=== PATIENT | male | born 1965 | race Caucasian/White ===

== ENCOUNTER 2017-02-03 11:55 | Day surgery (SDC) | payer OTHER ==
[~2017-02-03] VITALS: Ht 188 cm; Wt 123.0 kg
[~2017-02-03 11:55] MED LIST: PRED20TA PO
--- NOTE | 2017-02-03 12:45 | DIAGNOSTIC IMAGING REPORT ---
CHEST PREADMISSION(PA/LAT) CLINICAL HISTORY: for surgery today COMPARISON STUDY: No previous studies for comparison. FINDINGS: The bones soft tissues and hemidiaphragms are normal. The cardiomediastinal silhouette is normal. The lungs are clear. The pulmonary vasculature is normal. IMPRESSION: Negative chest. The above report was generated using voice recognition software. It may contain grammatical, syntax or spelling errors. Electronically signed by: Homero Villalba M.D. 02/03/2017 12:44 PM Dictated Date/Time: 02/03/2017 12:43 PM
[2017-02-03 12:56] VITALS: BP 140/68; PULSE 68; TEMP 36.9; O2SAT 98; Ht 188 cm; Wt 123.0 kg
[2017-02-03] MEDS ORDERED: ESCI1TAB6 PO (12:56)
[2017-02-03] MEDS ORDERED: ASPI81TA28 PO (12:56)
[2017-02-03] MEDS ORDERED: CEFAZOLIN 2000MG IV PUSH 10 ML IV SCH (13:00)
[2017-02-03 13:09] LABS: BASO % 0.1 %; BASO ABS # 0.01 K/uL (0-0.2); EOS % 1.6 %; HEMATOCRIT 42.9 % (42-52); IG% 0.1 %; LYMPH % 20.3 %; LYMPH ABS # 1.78 K/uL (1.2-3.4); MEAN CELL VOLUME 83.8 fL (80-100); MEAN CORPUSCULAR HEMOGLOBIN 28.3 pg (25-34); MEAN PLATELET VOLUME 10.9 fL (7.4-10.4); MONO % 5.9 %; PLATELET COUNT 269 K/uL (130-400); RED BLOOD COUNT 5.12 M/uL (4.7-6.1); WHITE BLOOD COUNT 8.76 K/uL (4.8-10.8)
[2017-02-03 13:29] LABS: BUN/CREATININE RATIO 10.5 (10-20); CALCIUM 8.7 mg/dl (8.5-10.1); COMPLETE YES; CREATININE 0.94 mg/dl (0.60-1.40); MEAN CORPUSCULAR HGB CONC 33.8 g/dl (32-36); POTASSIUM 3.5 mmol/L (3.5-5.1)
[2017-02-03] MEDS ORDERED: OXYC-106 PO ×2 (13:29→16:43)
[2017-02-03] MEDS ORDERED: CEFAZOLIN SOD 2000MG/10 ML IV PUSH IV ONE (13:36)
[2017-02-03] MEDS ORDERED: BUPIVACAINE 0.5 % 5 MG/1 ML MPF 30ML VIAL ONE (15:11)
[2017-02-03] MEDS ORDERED: MIDAZOLAM HCL 1 MG/ML 2ML VIAL ONE (15:19)
[2017-02-03] MEDS ORDERED: FENTANYL CITRATE INJ 50 MCG/1 ML 2 ML VIAL ONE ×3 (15:19→16:08)
--- NOTE | 2017-02-03 15:22 | History & Physical Bridge Note ---
H&P Re-Evaluation Bridge Note: I have examined the patient, reviewed the History & Physical and in the interval since the performance of the History & Physical I have noted the following changes of clinical significance: No changes noted R radical inguinal orchiectomy for suspected testicular cancer.
[2017-02-03] MEDS ORDERED: DEXAMETHASONE SOD INJ 4 MG/ML VIAL ONE (15:40)
[2017-02-03] MEDS ORDERED: ONDANSETRON INJ 2 MG/ML 2 ML VIAL ONE (15:40)
[2017-02-03] MEDS ORDERED: PROPOFOL IV EMULSION 10 MG/ML 20 ML VIAL IV ONE (15:40)
[2017-02-03] MEDS ORDERED: LIDOCAINE HCL 2% 2 ML VIAL (20MG/ML) ONE (15:40)
[2017-02-03] MEDS ORDERED: ETOMIDATE 2 MG/ML 20 ML VIAL IV ONE (16:08)
[2017-02-03] MEDS ORDERED: ONDANSETRON INJ 2 MG/ML 2 ML VIAL IV PRN (16:15)
[2017-02-03] MEDS ORDERED: HYDROmorphone INJ 1 MG/ML SYR IV PRN (16:15)
[2017-02-03] MEDS ORDERED: EpHEDrine SULFATE INJ 50 MG/ML AMP IV PRN (16:15)
[2017-02-03] MEDS ORDERED: PROMETHAZINE HCL INJ 12.5 MG in SODIUM CHLORIDE 0.9% 50ML 50 ML IV PRN (16:15)
[2017-02-03] MEDS ORDERED: ATROPINE SULFATE 0.1 MG/ML 5ML SYR IV PRN (16:15)
--- NOTE | 2017-02-03 16:42 | Discharge Instructions ---
Discharge Instructions Date of Service Feb 03, 2017. Admission Reason for Admission: Scrotal Mass Discharge Discharge Diagnosis / Problem: testicular mass Discharge Goals Goal(s): Decrease discomfort, Improve function, Increase independence, Improve disease control, Prevent Disease Progression Activity Recommendations Activity Limitations: per Instructions/Follow-up section Lifting Limitations: no more than 25 pounds (for the next 4 weeks) Exercise/Sports Limitations: gradually increase as tolerated May Resume Sexual Activity: when tolerated Shower/Bathe: tomorrow Driving or Machine Use: resume 1 day after discharge (as long as you are off of pain medications and feel you can control your vehicle) . Instructions / Follow-Up Instructions / Follow-Up Dr. Angelo Villagomez's office will arrange for a follow up appointment if they haven't done so already. Discharge Diet Recommended Diet: Regular Diet Procedures Procedures Performed: Right Inguinal Radical Orchiectomy Pending Studies Studies pending at discharge: no Medical Emergencies . Who to Call and When: Medical Emergencies: If at any time you feel your situation is an emergency, please call 911 immediately. . Non-Emergent Contact Non-Emergency issues call your: Urologist Call Non-Emergent contact if: you have a fever, temperature is above 101.5, your pain is not controlled, your pain is worsening . . "Provider Documentation" section prepared by Tato Montes. . VTE Core Measure Inpt VTE Proph given/why not?: Treatment not indicated (1 recent prescription ( appropriate))
[2017-02-03] MEDS ORDERED: SODIUM CHLORIDE 0.9% 1000ML 1,000 ML IV SCH (16:43)
[2017-02-03] MEDS ORDERED: OXYCODONE/ACETAMINOPHEN 5-325 TAB PO PRN ×2 (16:45)
[2017-02-03] MEDS: FENTANYL CITRATE INJ 50 MCG/1 ML 2 ML VIAL IV PRN ×4 (16:52→17:08)
--- NOTE | 2017-02-03 17:03 | [facility] Operative Report ---
Operative Report Operative Date Feb 03, 2017. Pre-Operative Diagnosis Right testicular mass - suspected testicular cancer Post-Operative Diagnosis same as pre-operative Procedure(s) Performed Radical Right Inguinal Orchiectomy Surgeon Dr. Naseem Villagomez Estimated Blood Loss 10ml Findings Large, hypervascular testicular mass with significant inflammatory response of the gubernaculum and tunical vaginalis Specimens Fresh Specimen A: Right testicle Drains none Anesthesia Gen; local Complication(s) None Disposition Recovery Room / PACU Indications Testicular mass - questionable hx of trauma, but grossly elevated tumor markers Description of Procedure Yared Omalley was identified in the preoperative holding area, appropriate informed consent reviewed and completed and the patient was transported to the operating suite. On arrival he received appropriate preoperative antibiotics in the form of Ancef. Adequate general anesthesia was achieved and the patient was placed in supine position with the bed slightly flexed. He was sterilely prepped and draped in standard fashion with inclusion of the scrotum in the field. Of note, the patient has a history of right inguinal herniorrhaphy and recent history with questionable trauma to the right testis. He was noted to have significant right testicular swelling and in the midst of his evaluation was determined to have grossly elevated testicular cancer tumor markers, prompting the decision to treat this as a testicular cancer and proceed with radical inguinal orchiectomy. I utilized his prior right inguinal incision and opened it for its full length with a scalpel. I carried my dissection through Mk's fascia until I encountered the external oblique fascia. Several blue Prolene stitches were visible at this level, these were cut sharply and the external oblique fascia opened exposing the canal. I inspected for the nerve, however this was not readily visible. There was some scarring around the cord, although not excessive. There was no evidence of recurrent hernia. I was able to successfully dissect circumferentially around the cord at this level. I then split the cremasteric musculature to expose the underlying true cord structures. I again dissected circumferentially around the structures before elevating them out of the incision and utilizing a Julieta drain as a tourniquet placed at the most proximal extent of the cord. I then carefully dissected distally around the perimeter of the cord until I was able to access the upper aspect of the scrotum. With gentle traction on the cord as well as pressure placed on the testis through the scrotal wall, I was able to deliver the testis through our incision. Upon delivery, it was a very readily apparent that there was a significant inflammatory response around the testis itself. Rather than a small, thin gubernaculum there was a significant adhesive and desmoplastic reaction around the testis bonding the scrotal wall to the testis. I was able to carefully tease the scrotal wall off the testis without violating the dermal layers. I meticulously obtained hemostasis from the inner aspect of the scrotal wall before placing a sponge within the scrotal compartment as I turned my attention towards completion of the orchiectomy. Just proximal to my previously placed tourniquet, I was able to divide the cord into 3 distinct packets. 1 packet containing the vas deferens, second packet of the vasculature in the third the remaining structures. After clamping the cord at this level, I transected the cord distal to my clamps and removed the testis and passed it off the table. Of note, this was a very vascular appearing testis with numerous vessels seen coursing underneath the tunica albuginea and other aspects of the specimen. Each of the cord packets was ligated utilizing a 0 silk tie followed by suture ligation utilizing a 2-0 silk suture. The silk sutures were left approximately 1-1/2 inches in length. I then push the cord remnant retrograde through the internal inguinal ring. Of note, secondary to his prior herniorrhaphy, there was a small finger width defect at the internal ring surrounded by his previously placed mesh. Utilizing a 2-0 Prolene suture, I placed a [id number] stitch across this and closed the internal ring with extreme care to avoid entrapment of any internal structures. I then removed the sponge previously placed into the scrotum and inspected for hemostasis which was excellent. There was no active bleeding within the canal either. I irrigated the canal with sterile water, before reapproximating the external oblique fascia with a 2-0 Prolene suture. The wound was infiltrated with half percent Marcaine placed under the fascia as well as in the skin. A 0 Vicryl was used to reapproximate Mk's fascia before closing the skin with 4-0 Monocryl subcuticular stitch. Dermabond was placed over the wound, and the patient was subsequently extubated and taken to the PACU in stable condition. I attest to the content of the Intraoperative Record and any orders documented therein. Any exceptions are noted below.
[2017-02-03 17:30] VITALS: BP 136/72; PULSE 67; TEMP 36.8; O2SAT 98
--- NOTE | 2017-02-03 17:49 | Anesthesiology Progress Note ---
Anesthesia Post Op Note Date & Time Feb 03, 2017 at 17:48 Vital Signs Pain Intensity: 4 Vital Signs Past 12 Hours Date Time Temp Pulse Resp B/P (MAP) Pulse Ox O2 Delivery O2 Flow Rate FiO2 02/03/17 17:20 67 16 121/78 97 Room Air 02/03/17 17:10 70 18 140/81 98 Room Air 02/03/17 17:00 69 16 147/90 100 Oxymask 10 02/03/17 16:50 67 20 149/87 100 Oxymask 10 02/03/17 16:44 37.1 65 18 121/77 99 Oxymask 10 02/03/17 12:56 36.9 68 18 140/68 (92) 98 Room Air Notes Mental Status: alert / awake / arousable, participated in evaluation Pt Amnestic to Procedure: Yes Nausea / Vomiting: adequately controlled Pain: adequately controlled Airway Patency, RR, SpO2: stable & adequate BP & HR: stable & adequate Hydration State: stable & adequate Anesthetic Complications: no major complications apparent
[2017-02-03 18:00] VITALS: BP 125/69; PULSE 72; TEMP 36.8; O2SAT 97
[2017-02-03 18:30] VITALS: BP 116/86; PULSE 72; TEMP 36.8; O2SAT 97
[2017-03-10] MEDS ORDERED: NAPR1TAB9 PO (11:32)
[2017-03-11] MEDS ORDERED: HYDR-5688 PO (10:29)
== END 2017-02-03 19:40 | disposition home or self-care (01) ==
LOC: C.ACU 11:55
PROVIDERS: ATTEND Urology
DX: C62.91 Malignant neoplasm of right testis, unspecified whether descended or undescended (principal)

== ENCOUNTER → 2017-02-13 | Outpatient (CLI) | payer OTHER ==
[~2017-02-13] MED LIST changes: +ASPI81TA28 PO; +ESCI1TAB6 PO; +OPTIRAY 320 IV PRN; +OXYC-106 PO; -PRED20TA PO
--- NOTE | 2017-02-13 12:17 | DIAGNOSTIC IMAGING REPORT ---
ABD/PELVIS IV CONTRAST ONLY CLINICAL HISTORY: 51 years-old Male presenting with testicular cancer. TECHNIQUE: Multidetector CT of the abdomen and pelvis was performed after the administration of intravenous contrast. IV contrast: 120 mL of Optiray 320. A dose lowering technique was used consistent with the principles of ALARA (as low as reasonably achievable). COMPARISON: None. CT DOSE (mGy.cm): The estimated cumulative dose is 1273.18 mGy.cm. FINDINGS: Legal Advisor topogram: Unremarkable. Lung bases: Lung bases clear. Normal heart size. No pericardial or pleural effusion. Liver: Normal morphology. No liver lesion. Patent hepatic vasculature. Biliary: No intrahepatic or extrahepatic biliary ductal dilatation. Gallbladder surgically absent. Pancreas: Mild parenchymal atrophy. Spleen: Normal. Adrenal glands: Normal. Kidneys and ureters: 3 mm nonobstructing left renal calculus at the lower pole. No hydronephrosis. Punctate and subcentimeter hypodensities in the kidneys, too small to characterize but likely cysts. Ureters normal bilaterally. Bladder: Mild circumferential bladder wall thickening. Pelvic organs: Prostate and seminal vesicles normal. Bowel: Normal appendix. No bowel obstruction. Small hiatal hernia. Peritoneal cavity: No free fluid or intraperitoneal gas. Lymph nodes: Pathologically enlarged lymph node in the aortocaval region measuring 25 x 22 mm (series 6 image 251). Additional borderline enlarged lymph node in the posterior mediastinum adjacent to the gastroesophageal junction measuring 8 mm in the short axis (series 6 image 78). Vasculature: Atherosclerosis of the normal caliber abdominal aorta. IVC patent. Abdominal wall: Postsurgical and/or posttreatment changes of the right scrotum. Fluid suggested in the right inguinal canal. Overlying subcutaneous fat infiltration and skin thickening noted. Musculoskeletal: Multiple sclerotic foci in the pelvis are most characteristic of bone islands. No destructive osseous lesion. Hemangioma noted in the T10 vertebral body. IMPRESSION: 1. Retroperitoneal lymphadenopathy consistent with metastatic disease. Suspicious though borderline enlarged lymph node in the posterior mediastinum adjacent to the GE junction, also concerning for potential site of disease. 2. Postsurgical and/or posttreatment changes of the right scrotum and overlying abdominal wall. Correlate clinically to exclude cellulitis. 3. Circumferential bladder wall thickening. Differential considerations include radiation cystitis, infectious cystitis, and chronic bladder outlet obstruction. 4. Nonobstructing left renal calculus. Electronically signed by: Darron Martinez M.D. 02/13/2017 12:16 PM Dictated Date/Time: 02/13/2017 12:04 PM
--- NOTE | 2017-02-13 12:20 | DIAGNOSTIC IMAGING REPORT ---
(CHEST) THORAX WITH CT DOSE: HISTORY: Testicular carcinoma C62.90 [id number] 02/04/17 - 08/03/17CTS7 TECHNIQUE: Multiaxial CT images of the chest were performed following the intravenous administration of contrast. A dose lowering technique was utilized adhering to the principles of ALARA. COMPARISON: None. FINDINGS: Lungs are considered clear. Single micronodule right middle lobe transaxial image 26 measuring 3 mm. 2 mm left mid lung nodule. No additional significant nodularity. No focal infiltrative change. Hilar and mediastinal regions show no significant adenopathy. No lytic or blastic process of the osseous structures. IMPRESSION: 1. Small micronodules of the right as well as left chest measuring 3 and 2 mm respectively. 2. Study is otherwise normal. 3. Follow-up per Fleischner criteria of these low suspicion nodules. Please refer to below summary of Fleischner criteria recommendations for follow-up of incidental CT nodules (Maxwell Campos, Guidelines for management of small pulmonary nodules detected on CT scans: A statement from the Fleischner Society, Radiology 237: [phone].) SOLID NODULES Solitary nodule size: <6 mm * low risk patients: no follow-up needed * high risk patients: optional CT at 12 months Solitary nodule size: 6-8 mm * low risk patients: follow-up at 6-12 months, then consider further follow-up at 18-24 months * high risk patients: initial follow-up CT at 6-12 months and then at 18-24 months if no change Solitary nodule size: >8 mm * either low or high risk patients - consider follow-up CT at 3 months, and/or CT-PET, and/or biopsy Multiple nodules size: <6 mm * low risk patients: no routine follow-up * high risk patients: optional CT at 12 months Multiple nodules size: 6-8 mm * low risk patients: follow-up at 3-6 months, then consider further follow-up at 18-24 months * high risk patients: follow-up at 3-6 months, then at 18-24 months if no change Multiple nodules size: >8 mm * low risk patients: follow-up at 3-6 months, then consider further follow-up at 18-24 months * high risk patients: follow-up at 3-6 months, then at 18-24 months if no change Note: newly detected indeterminate nodule in persons 35 years of age or older. * low risk patients: minimal or absent history of smoking and/or other known risk factors * high risk patients: history of smoking or of other known risk factors (e.g. first degree relative with lung cancer, or exposure to asbestos, radon, uranium) * if a nodule up to 8 mm is partly solid or is ground glass further follow-up is required after 24 months to exclude possible slow growing adenocarcinoma (RL) SUBSOLID NODULES Solitary pure ground-glass nodule * nodule size <6 mm - no CT follow-up required * nodule size >=6 mm - follow-up CT at 6-12 months, then every 2 years until 5 years Solitary part-solid nodule * nodule size <6 mm - no CT follow-up required * nodule size >=6 mm - follow-up CT at 3-6 months. If unchanged, and solid component remains <6 mm, then annual follow-up for 5 years Multiple subsolid nodules * nodule size <6 mm - follow-up CT at 3-6 months, consider further follow-up at 2 and 4 years if stable * nodule size >=6 mm - follow-up CT at 3-6 months, subsequent management based on the most suspicious nodule(s) The above report was generated using voice recognition software. It may contain grammatical, syntax or spelling errors. Electronically signed by: Homero Villalba M.D. 02/13/2017 12:19 PM Dictated Date/Time: 02/13/2017 12:15 PM
[2017-02-16 10:19] LABS: AFP TUMOR MARKER SERUM 2027.1 NG/ML (<6.1)
== END | disposition home or self-care (01) ==
LOC: C.CTS 11:01
PROVIDERS: ATTEND Urology
DX: C62.90 Malignant neoplasm of unspecified testis, unspecified whether descended or undescended (principal)

== ENCOUNTER → 2017-03-09 | Outpatient (CLI) | payer OTHER ==
[~2017-03-09] MED LIST changes: +HYDR-5688 PO; +NAPR1TAB9 PO; -OPTIRAY 320 IV PRN
--- NOTE | 2017-03-10 11:31 | PULMONARY FUNCTION TEST ---
CLINICAL DATA: A 51-year-old male, height 72 inches and a weight of [address] Weber for pulmonary evaluation prior to initiating chemotherapy for testicular cancer. Spirometry pre- and post-bronchodilator, lung volumes, and DLCO were performed. FINDINGS: Pre-bronchodilator spirometry demonstrates mild obstructive airways disease. FVC is 77% of predicted. FEV1 was 73% of predicted. [id number] was 60% of predicted. There was improvement after inhaled bronchodilator. FVC improved 8% to 83% of predicted. FEV1 improved 11% to 81% of predicted. [id number] improved 25% to 75% of predicted. Lung volumes showed a normal residual volume. Expiratory reserve volume was reduced secondary to obesity. DLCO was normal at 82%. IMPRESSION: Mild obstructive airways disease with improvement after inhaled bronchodilator. Reduction in expiratory reserve volume due to obesity. Normal DLCO. MTDD
== END | disposition home or self-care (01) ==
LOC: C.RC 11:39
PROVIDERS: ATTEND Internal Medicine Hematology & Oncology
DX: C62.11 Malignant neoplasm of descended right testis (principal)

== ENCOUNTER → 2017-03-11 | Day surgery (SDC) | payer OTHER ==
[~2017-03-11] VITALS: Ht 188 cm; Wt 105.9 kg
[~2017-03-11] MED LIST changes: +CEFAZOLIN 2000MG IV PUSH 10 ML IV SCH; +CEFAZOLIN SOD 1 GM VIAL ONE; +DEXAMETHASONE SOD INJ 4 MG/ML VIAL ONE; +FENTANYL CITRATE INJ 50 MCG/1 ML 2 ML VIAL ONE; +HEPARIN SOD (PORCINE) 1000 UNIT/ML 10 ML VIAL ONE; +HYDROCODONE/ACETAMOPHEN 5/325MG TAB PO PRN; +LACTATED RINGER'S 1000ML 1,000 ML IV SCH; +LIDOCAINE HCL 1% 20 ML VIAL ONE; +LIDOCAINE HCL 2% 2 ML VIAL (20MG/ML) ONE; +MIDAZOLAM HCL 1 MG/ML 2ML VIAL ONE; +MoRPHine SULFATE 2 MG/ML CARP IV PRN; +ONDANSETRON INJ 2 MG/ML 2 ML VIAL IV PRN; +ONDANSETRON INJ 2 MG/ML 2 ML VIAL ONE; -OXYC-106 PO; +PROPOFOL IV EMULSION 10 MG/ML 20 ML VIAL IV ONE; +THROMBIN FOR SOLN 20000 UNIT KIT ONE
[2017-03-11 09:10] VITALS: BP 141/78; PULSE 65; TEMP 36.8; O2SAT 98; Ht 188 cm; Wt 105.9 kg
[2017-03-11 09:22] LABS: HEMATOCRIT 44.9 % (42-52); MEAN CELL VOLUME 83.6 fL (80-100); MEAN CORPUSCULAR HEMOGLOBIN 27.2 pg (25-34); PLATELET COUNT 209 K/uL (130-400); RED BLOOD COUNT 5.37 M/uL (4.7-6.1); WHITE BLOOD COUNT 7.83 K/uL (4.8-10.8)
[2017-03-11 09:25] LABS: MEAN CORPUSCULAR HGB CONC 32.5 g/dl (32-36)
--- NOTE | 2017-03-11 10:28 | Discharge Instructions ---
Discharge Instructions Date of Service Mar 11, 2017. Visit Reason for Visit: Testicular Cancer Discharge Discharge Diagnosis / Problem: A-port placement Discharge Goals Goal(s): Therapeutic intervention Activity Recommendations Activity Limitations: as noted below Shower/Bathe: keep incision dry (for 2 days) Driving or Machine Use: resume 3 days after discharge Anesthesia . Post Anesthesia Instructions: If you have had General Anesthesia or IV Sedation: * Do not drive today. * Resume driving when surgeon permits. * Do not make important decisions or sign legal documents today. * Call surgeon for: 1. Temperature elevations greater than 101 degrees F. 2. Uncontrollable pain. 3. Excessive bleeding. 4. Persistent nausea and vomiting. 5. Medication intolerance (nausea, vomiting or rash). * For nausea and vomiting use only clear liquids such as: tea, soda, bouillon until nausea subsides, then gradually increase diet as tolerated. * If you have any concerns or questions, call your surgeon's office. If physician is unavailable and it is an emergency, call 911 or go to the nearest emergency room. . Instructions / Follow-Up Instructions / Follow-Up Dr. Jones's office in 2 weeks for suture removal, call [phone] to schedule OK for port to be used Diet Recommendations Recommended Home Diet: no limitations Pending Studies Studies pending at discharge: no Medical Emergencies . Who to Call and When: Medical Emergencies: If at any time you feel your situation is an emergency, please call 911 immediately. . Non-Emergent Contact Non-Emergency issues call your: Surgeon Call Non-Emergent contact if: you have a fever, temperature is above 101.5, your pain is not controlled, wound has increased redness, you have any medication questions . . "Provider Documentation" section prepared by Gerardo Cuevas. .
--- NOTE | 2017-03-11 10:31 | History & Physical Bridge Note ---
H&P Re-Evaluation Bridge Note: I have examined the patient, reviewed the History & Physical and in the interval since the performance of the History & Physical I have noted the following changes of clinical significance: No changes noted
--- NOTE | 2017-03-11 12:45 | [facility] Operative Report ---
Operative Report Operative Date Mar 11, 2017. Pre-Operative Diagnosis poor venous access; testicular cancer Post-Operative Diagnosis poor venous access; testicular cancer Procedure(s) Performed Insertion of A-Port into left cephalic vein Surgeon Dr. Matthias Jones Chips Screen Tender Surgeon(s) none Estimated Blood Loss 5mL Findings placed via Lt cephalic vein Specimens none per surgeon Anesthesia local/ sedation Complication(s) None Disposition Recovery Room / PACU I attest to the content of the Intraoperative Record and any orders documented therein. Any exceptions are noted below.
--- NOTE | 2017-03-11 13:07 | DIAGNOSTIC IMAGING REPORT ---
CHEST ONE VIEW PORTABLE CLINICAL HISTORY: port placement COMPARISON STUDY: Chest CT February 13, 2017. FINDINGS: There has been interval placement of a left subclavian [id number]. Catheter tip projects over the cavoatrial junction. There is no pneumothorax. No consolidation is present. Pulmonary vascularity is normal. Cardiomediastinal silhouette is normal. IMPRESSION: No pneumothorax following placement of a left subclavian [id number]. Electronically signed by: Ortiz Barnes M.D. 03/11/2017 1:06 PM Dictated Date/Time: 03/11/2017 1:03 PM
--- NOTE | 2017-03-11 13:27 | OPERATIVE REPORT ---
DATE OF OPERATION: 03/11/2017 NAME OF OPERATION: Access port placement. PREOPERATIVE DIAGNOSIS: Testicular cancer. POSTOPERATIVE DIAGNOSIS: Same. STAFF SURGEON: Dr. Jones. ANESTHESIA: 1% plain lidocaine. PROCEDURE: The patient was brought in the operating room and placed on the operating table in supine position. His chest was prepped and draped in usual fashion. Skin and subcutaneous tissues over the left deltopectoral groove were anesthetized. Incision made carrying dissection down identifying the cephalic vein which was deep. It was ligated distally using 2-0 silk suture and then opened. A catheter passed into the superior vena cava under fluoroscopy, secured in place using a 2-0 silk. The catheter was aspirated and flushed with heparinized solution. A pocket was fashioned in the chest wall. The port attached to the catheter, placed into the pocket and secured to the chest wall using 3-0 Prolene suture. The port was then aspirated and flushed with heparinized solution. The site was irrigated with antibiotic solution. Subcutaneous tissues were reapproximated using 2-0 chromic catgut suture then the skin reapproximated using 4-0 nylon suture. I attest to the content of the Intraoperative Record and any orders documented therein. Any exception s are noted below.
[2017-03-11 13:45] VITALS: BP 118/70; PULSE 62; TEMP 36.4; O2SAT 96
--- NOTE | 2017-03-11 13:46 | Anesthesiology Progress Note ---
Anesthesia Post Op Note Date & Time Mar 11, 2017 at 13:45 Vital Signs Pain Intensity: 0 Vital Signs Past 12 Hours Date Time Temp Pulse Resp B/P (MAP) Pulse Ox O2 Delivery O2 Flow Rate FiO2 03/11/17 13:40 62 14 124/72 96 Room Air 03/11/17 13:30 61 17 124/70 96 Room Air 03/11/17 13:15 61 20 125/77 97 Room Air 03/11/17 13:05 36.4 61 20 110/80 97 Room Air 03/11/17 12:55 67 12 133/84 98 Room Air 03/11/17 12:45 36.6 68 12 143/89 96 Room Air 03/11/17 09:10 36.8 65 20 141/78 (99) 98 Room Air Notes Mental Status: alert / awake / arousable, participated in evaluation Pt Amnestic to Procedure: Yes Nausea / Vomiting: adequately controlled Pain: adequately controlled Airway Patency, RR, SpO2: stable & adequate BP & HR: stable & adequate Hydration State: stable & adequate Anesthetic Complications: no major complications apparent
[2017-03-11 14:21] VITALS: BP 122/72; PULSE 65; TEMP 36.5; O2SAT 95
--- NOTE | 2017-03-11 14:38 | OPERATIVE REPORT ---
DATE OF OPERATION: 03/11/2017 NAME OF OPERATION: Port placement with fluoroscopy. ANESTHESIA: General. STAFF SURGEON: Dr. Jones. DESCRIPTION OF PROCEDURE: The patient was in the operating room undergoing port placement. We used fluoroscopy to adequately position the catheter which was then attached to the port. I attest to the content of the Intraoperative Record and any orders documented therein. Any exception s are noted below.
== END | disposition home or self-care (01) ==
LOC: C.ACU 08:48
PROVIDERS: ATTEND Surgery
DX: C62.90 Malignant neoplasm of unspecified testis, unspecified whether descended or undescended (principal); I87.8 Other specified disorders of veins; F41.9 Anxiety disorder, unspecified; Z90.49 Acquired absence of other specified parts of digestive tract; Z98.890 Other specified postprocedural states; Z79.899 Other long term (current) drug therapy; Z79.82 Long term (current) use of aspirin; Z90.89 Acquired absence of other organs; Z80.8 Family history of malignant neoplasm of other organs or systems; Z82.3 Family history of stroke; Z83.3 Family history of diabetes mellitus; Z82.49 Family history of ischemic heart disease and other diseases of the circulatory system

== ENCOUNTER → 2017-04-30 | Outpatient (CLI) | payer OTHER ==
[~2017-04-30] MED LIST changes: -CEFAZOLIN 2000MG IV PUSH 10 ML IV SCH; -CEFAZOLIN SOD 1 GM VIAL ONE; -DEXAMETHASONE SOD INJ 4 MG/ML VIAL ONE; -FENTANYL CITRATE INJ 50 MCG/1 ML 2 ML VIAL ONE; -HEPARIN SOD (PORCINE) 1000 UNIT/ML 10 ML VIAL ONE; -HYDROCODONE/ACETAMOPHEN 5/325MG TAB PO PRN; -LACTATED RINGER'S 1000ML 1,000 ML IV SCH; -LIDOCAINE HCL 1% 20 ML VIAL ONE; -LIDOCAINE HCL 2% 2 ML VIAL (20MG/ML) ONE; -MIDAZOLAM HCL 1 MG/ML 2ML VIAL ONE; -MoRPHine SULFATE 2 MG/ML CARP IV PRN; -ONDANSETRON INJ 2 MG/ML 2 ML VIAL IV PRN; -ONDANSETRON INJ 2 MG/ML 2 ML VIAL ONE; -PROPOFOL IV EMULSION 10 MG/ML 20 ML VIAL IV ONE; -THROMBIN FOR SOLN 20000 UNIT KIT ONE
--- NOTE | 2017-05-01 08:10 | PULMONARY FUNCTION TEST ---
Spirometry shows a moderate decrease in both forced vital capacity and FEV1 with a normal FEV1/FVC ratio. This would be consistent with a mild to moderate restrictive pattern. Mid flow rates were decreased. Cannot exclude small airways dysfunction. Repeat study done following bronchodilator showed mild but not significant improvement in function. Flow volume loops are consistent with spirometric findings. Lung volumes show mild decrease in FRC, RV and TLC. This is consistent with mild restriction. Diffusion capacity is reduced to 60% of predicted. When corrected for alveolar ventilation, the diffusion normalized to 110%. Advise clinical correlation.
== END | disposition home or self-care (01) ==
LOC: C.RC 13:18
PROVIDERS: ATTEND Nurse Practitioner Family
DX: C62.11 Malignant neoplasm of descended right testis (principal)

== ENCOUNTER 2017-05-22 05:52 | Observation (INO) | payer OTHER ==
[~2017-05-22] VITALS: Ht 188 cm; Wt 104.0 kg
[~2017-05-22 05:52] MED LIST changes: -ESCI1TAB6 PO; -HYDR-5688 PO; +effexor
[2017-05-22 09:00] VITALS: BP 153/85; PULSE 86; TEMP 37; BMI 30.0
[2017-05-22] MEDS ORDERED: MoRPHine SULFATE 4 MG/ML 1 ML CARP\\VIAL IV PRN (09:30)
[2017-05-22] MEDS ORDERED: NURSING VERBAL MED ORDER ONE (09:30)
[2017-05-22] MEDS ORDERED: LORAZEPAM 2 MG/ML 1 ML VIAL IV PRN ×2 (09:30)
[2017-05-22] MEDS ORDERED: SODIUM CHLORIDE 0.9% 1000ML 1,000 ML IV SCH (09:30)
[2017-05-22] MEDS ORDERED: MoRPHine SULFATE 2 MG/ML CARP IV PRN (09:30)
[2017-05-22 10:13] LABS: EOS % 0.1 %; EOS ABS # 0.01 K/uL (0-0.5); HEMATOCRIT 25.7 % (42-52); HEMOGLOBIN 9.3 g/dL (14.0-18.0); IG# 0.02 K/uL (0.00-0.02); LYMPH % 13.8 %; LYMPH ABS # 0.95 K/uL (1.2-3.4); MEAN CELL VOLUME 75.8 fL (80-100); MEAN CORPUSCULAR HEMOGLOBIN 27.4 pg (25-34); MEAN PLATELET VOLUME 8.8 fL (7.4-10.4); MONO % 1.4 %; NEUT % 84.4 %; NEUT ABS # 5.82 K/uL (1.4-6.5); PLATELET COUNT 196 K/uL (130-400); RED CELL DISTRIBUTION WIDTH CV 15.1 % (11.5-14.5); RED CELL DISTRIBUTION WIDTH SD 40.8 fL (36.4-46.3)
--- NOTE | 2017-05-22 10:26 | History and Physical ---
History & Physical Date & Time of Service: May 22, 2017 at 09:49 Chief Complaint: Acute Kidney Injury, Testicular Cancer Primary Care Physician: Sly Mishra D.O. History of Present Illness Mr. Omalley was transferred from [place] today for a creatinine of 1.8. He is to have his last chemo treatment for testicular cancer today. Thursday his hgb dropped to 7.7 so he got 2 units on Thursday and was doing ok after that. He has been nauseas in the mornings but his morning he did vomit a few times. He went to the ED in [place] due to vomiting as the vomiting was "violent" and acidic so he felt it was emergent. He also has associated diarrhea. The doctor at [place] talked to Dr. Weber and had him transferred here. He is at times sob with a cough which started with his cancer treatments ROS Constitutional: no chills, aches, sweats or fever Respiratory: see HPI. Cardiac: no chest pain, palpitations, edema, orthopnea or lightheadedness GI: see HPI : no dysuria or hesitancy Extremities: no joint pain or weakness Skin: no rash All other systems reviewed and negative Pmhx: cholecystectomy, hernia repair, right testicle removed. Family History Father - no significant medical history Mother - of multiple myeloma Social History Smoking Status: Never Smoker Smokeless Tobacco Use: No Alcohol Use: occasionally (rare) Drug Use: none Marital Status: Housing status: lives with family Occupational Status: employed Immunizations History of Influenza Vaccine: No History of Pneumococcal: No Multi-Drug Resistant Organisms History of MDRO: No Allergies Coded Allergies: BEE STING (Unverified Allergy, Mild, GI SYMPTOMS, 05/19/17) Ketorolac Tromethamine (Verified Allergy, Mild, swelling, 05/19/17) Home Medications Scheduled Aspirin (Aspirin Ec), 81 MG PO QAM [effexor], 1 TAB HS Physical Exam Vital Signs Date Time Temp Pulse Resp B/P (MAP) Pulse Ox O2 Delivery O2 Flow Rate FiO2 05/22/17 09:00 Room Air 05/22/17 09:00 37.0 86 20 153/85 General: no distress Eyes: normal inspection, PERLL Respiratory: chest non tender, clear to auscultation, normal breath sounds, no respiratory distress, no accessory muscle use Cardiac: regular rate and rhythm, no rub or gallop, no murmur, no edema, no jvd GI/: active bowel sounds, no abd pain or tenderness, soft, non distended Extremities: normal range of motion, normal strength, non tender Neuro/Psych: alert and oriented x 3, normal mood and affect Skin: normal color, dry Diagnostics Laboratory Results Results Past 24 Hours Test 05/22/17 09:15 Range/Units Impression Assessment and Plan Mr. Omalley is a 52 year old man here for nausea and CAT who was transferred from [place] CAT - admit obs med surg - NSS @ 100 ml/hr - repeat prp Testicular cancer - consulted Dr. Weber - today is patients last scheduled cancer treatment Deppression - continue home effexor - patient is unsure of dose but think it is a low dose - will start with XR 37.5 for now and update if his can bring his med in Full code enoxaprin [employer]ECUTIVE Physician Supervision Note: I interviewed and examined the patient. Discussed with Harleen Youssef NP and agree with findings and plan as documented in the note. Any exceptions or clarifications are listed here: None Patient presented to the [place] ER with vomiting and some abdominal pain he is currently being treated for testicular cancer by our [facility]. Because of some acute tubular necrosis concern for dehydration with an elevated creatinine the patient was transferred to our facility is not yet clear whether he has acute renal failure because we do not see if this is reversible or not subsequently he will be hydrated given antiemetics. If his renal function remains poor we may consider an ultrasound. Vital signs are stable he is tolerating liquid diet abdomen is with hypoactive bowel sounds mildly distended dull to percussion soft heart regular lungs clear Concern for nausea vomiting associated with concurrent oncological treatment supportive care with IV fluids antiemetics and evaluation of his elevated creatinine Documented By: Joe Min Advanced Directives Existing Advance Directive: No Existing Living Will: No Existing Power of Surveying Crew Rodman: No Resuscitation Status FULL RESUSCITATION VTE Prophylaxis VTE Risk Assessment Done? Y/N: Yes Risk Level: Moderate
[2017-05-22 10:29] LABS: MEAN CORPUSCULAR HGB CONC 36.2 g/dl (32-36)
[2017-05-22 10:40] LABS: CALCIUM 6.4 mg/dl (8.5-10.1); CREATININE 1.91 mg/dl (0.60-1.40)
[2017-05-22] MEDS ORDERED: ONDANSETRON INJ 2 MG/ML 2 ML VIAL IV PRN (12:45)
[2017-05-22] MEDS ORDERED: PROCHLORPERAZINE INJ 5 MG in SYRINGE 4 ML IV PRN (12:45)
[2017-05-22 13:19] LABS: INR 1.1 (0.9-1.1); PTT PATIENT 23.8 SECONDS (21.0-31.0)
[2017-05-22] MEDS: IV FLUIDS COMPLETED PRN (13:34)
[2017-05-22] MEDS: POTASSIUM CHLORIDE INJ 40 MEQ in SODIUM CHLORIDE 0.9% 1000ML 1,000 ML IV SCH ×2 (13:34→23:50)
[2017-05-22] MEDS ORDERED: POTASSIUM CHLORIDE 10 MEQ TABCR PO ONE (14:30)
[2017-05-22 14:45] VITALS: BP 146/85; PULSE 67; TEMP 36.6; O2SAT 99
[2017-05-22 16:00] VITALS: O2SAT 99
--- NOTE | 2017-05-22 16:48 | Oncology Consultation ---
Oncology/Heme Consultation Date of Consultation: May 22, 2017. Attending Physician: Lj Solis M.D. Reason for Consultation: Testicular cancer Chemotherapy-induced nausea and diarrhea Dehydration History of Present Illness Mr. 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 He has been undergoing adjuvant chemotherapy and was due for his final dose of his final cycle today. He was feeling ill yesterday afternoon and into this morning, with nausea and what he describes as violent vomiting. He was seen in the ER in [place], where his his creatinine was 1.8 and he appeared dehydrated. He received a blood transfusion earlier this week for a hemoglobin of 7.7 and it was in the 8s in [place]. They contacted our center and he was transferred her for further management. He's received some IV fluids and IV anti-emetics and is looking and feeling better. Social History Smoking Status: Never Smoker Smokeless Tobacco Use: No Alcohol Use: occasionally (rare) Drug Use: none Marital Status: Occupation Status: employed Allergies Coded Allergies: BEE STING (Unverified Allergy, Mild, GI SYMPTOMS, 05/19/17) Ketorolac Tromethamine (Verified Allergy, Mild, swelling, 05/19/17) Home Medications Scheduled Aspirin (Aspirin Ec), 81 MG PO QAM [effexor], 1 TAB HS Current Inpatient Medications Current Inpatient Medications Medications (Trade) Dose Ordered Sig/Rhoda Route Start Time Stop Time Status Last Admin Dose Admin Lorazepam (Ativan Inj) 0.5 mg Q4H PRN IV 05/22/17 09:30 06/21/17 09:29 Lorazepam (Ativan Inj) 1 mg Q4H PRN IV 05/22/17 09:30 06/21/17 09:29 Morphine Sulfate (MoRPHine SULFATE INJ) 4 mg Q4H PRN IV 05/22/17 09:30 06/05/17 09:29 Morphine Sulfate (MoRPHine SULFATE INJ) 2 mg Q4H PRN IV 05/22/17 09:30 06/05/17 09:29 Miscellaneous (Iv Fluids Completed) 1 ea PRN PRN N/A 05/22/17 09:45 05/22/18 09:44 05/22/17 13:34 1 EA Heparin Sodium (Porcine) (Heparin 100 Unit/ml 5ml Flush) 5 ml PRN PRN IV 05/22/17 10:00 06/21/17 09:59 05/22/17 10:08 5 ML Enoxaparin Sodium (Lovenox Inj) 40 mg QPM SQ 05/22/17 21:00 06/21/17 20:59 Aspirin (Ecotrin Tab) 81 mg QAM PO 05/23/17 08:00 06/22/17 07:59 Venlafaxine HCl (effeXOR EXTENDED REL CAP) 37.5 mg QAM PO 05/23/17 08:00 06/22/17 07:59 Potassium Chloride 40 meq/ Sodium Chloride 1,020 ml @ 100 mls/hr [id number] IV 05/22/17 13:00 06/21/17 12:59 05/22/17 13:34 100 MLS/HR Ondansetron HCl (Zofran Inj) 4 mg Q6H PRN IV 05/22/17 12:45 06/21/17 12:44 05/22/17 16:17 4 MG Prochlorperazine Edisylate 5 mg/ Syringe 5 ml @ 5 mls/min Q6 PRN IV 05/22/17 12:45 06/21/17 12:44 Review of Systems Constitutional: + fatigue, No fever Respiratory: No cough, No shortness of breath Cardiovascular: No chest pain Abdomen: + nausea, + vomiting, + diarrhea Musculoskeletal: No joint pain, No muscle pain Hematologic / Lymphatic: No abnormal bleeding/bruising Physical Exam Date Time Temp Pulse Resp B/P (MAP) Pulse Ox O2 Delivery O2 Flow Rate FiO2 05/22/17 14:45 36.6 67 20 146/85 (105) 99 Room Air 05/22/17 09:00 Room Air 05/22/17 09:00 37.0 86 20 153/85 General Appearance: WD/WN, no apparent distress ENT: pharynx normal (mucous membranes moist) Respiratory/Chest: chest non-tender Cardiovascular: regular rate, rhythm Abdomen/GI: non tender, soft Extremities/Musculoskelatal: no pedal edema Neurologic/Psych: alert, oriented x 3 Skin: no rash Laboratory Results Last 24 Hours Test 05/22/17 10:02 05/22/17 12:54 White Blood Count 6.90 K/uL Red Blood Count 3.39 M/uL Hemoglobin 9.3 g/dL Hematocrit 25.7 % Mean Corpuscular Volume 75.8 fL Mean Corpuscular Hemoglobin 27.4 pg Mean Corpuscular Hemoglobin Concent 36.2 g/dl Platelet Count 196 K/uL Mean Platelet Volume 8.8 fL Neutrophils (%) (Auto) 84.4 % Lymphocytes (%) (Auto) 13.8 % Monocytes (%) (Auto) 1.4 % Eosinophils (%) (Auto) 0.1 % Basophils (%) (Auto) 0.0 % Neutrophils # (Auto) 5.82 K/uL Lymphocytes # (Auto) 0.95 K/uL Monocytes # (Auto) 0.10 K/uL Eosinophils # (Auto) 0.01 K/uL Basophils # (Auto) 0.00 K/uL RDW Standard Deviation 40.8 fL RDW Coefficient of Variation 15.1 % Immature Granulocyte % (Auto) 0.3 % Immature Granulocyte # (Auto) 0.02 K/uL Sodium Level 138 mmol/L Potassium Level 3.0 mmol/L Chloride Level 105 mmol/L Carbon Dioxide Level 23 mmol/L Anion Gap 10.0 mmol/L Blood Urea Nitrogen 28 mg/dl Creatinine 1.91 mg/dl Est Creatinine Clear Calc Drug Dose 60.0 ml/min Estimated GFR () 46.3 Estimated GFR (Non- 40.0 BUN/Creatinine Ratio 14.7 Random Glucose 114 mg/dl Calcium Level 6.4 mg/dl Prothrombin Time 11.1 SECONDS Prothromb Time International Ratio 1.1 Activated Partial Thromboplast Time 23.8 SECONDS Partial Thromboplastin Ratio 0.9 Assessment & Plan Mr. Omalley presented with worsening of his chemotherapy-related nausea and diarrhea. He is looking better after some fluids and IV antiemetics. He has oral antiemetics at home as well. He will likely be able to go home after some electrolyte repletion and observation. We won't be re-attempting this final day of his final cycle and so this moore the end of his chemotherapy for his testicular cancer. He already has an appointment with Dr. Weber in a few weeks to plan restaging scans and to discuss further management. He should call our cancer center if he has issues in the meantime.
[2017-05-22 18:05] LABS: CALCIUM 6.2 mg/dl (8.5-10.1); CREATININE 2.03 mg/dl (0.60-1.40); POTASSIUM 3.3 mmol/L (3.5-5.1)
[2017-05-22 19:28] VITALS: BP 134/77; PULSE 90; TEMP 36.7; O2SAT 95
[2017-05-22] MEDS ORDERED: ENOXAPARIN 40 MG/0.4 ML SYR SQ SCH (21:00)
[2017-05-22 23:56] VITALS: BP 117/74; PULSE 70; TEMP 36.8; O2SAT 98
[2017-05-23 04:55] VITALS: BP 132/87; PULSE 74; TEMP 36.7; O2SAT 98
[2017-05-23 05:58] LABS: HEMATOCRIT 24.5 % (42-52); HEMOGLOBIN 8.7 g/dL (14.0-18.0); MEAN CELL VOLUME 76.3 fL (80-100); MEAN CORPUSCULAR HEMOGLOBIN 27.1 pg (25-34); MEAN CORPUSCULAR HGB CONC 35.5 g/dl (32-36); MEAN PLATELET VOLUME 9.2 fL (7.4-10.4); PLATELET COUNT 179 K/uL (130-400); RED CELL DISTRIBUTION WIDTH CV 15.1 % (11.5-14.5); RED CELL DISTRIBUTION WIDTH SD 41.5 fL (36.4-46.3); WHITE BLOOD COUNT 4.48 K/uL (4.8-10.8)
[2017-05-23 06:14] VITALS: Ht 188 cm; Wt 104.0 kg
[2017-05-23 06:34] LABS: CREATININE 1.97 mg/dl (0.60-1.40); POTASSIUM 3.5 mmol/L (3.5-5.1)
[2017-05-23 07:12] VITALS: BP 126/81; PULSE 68; TEMP 36.8; O2SAT 97
[2017-05-23] MEDS ORDERED: VENLAFAXINE HCL XR 37.5 MG CAPXR PO SCH ×2 (08:00→21:00)
[2017-05-23] MEDS ORDERED: ASPIRIN 81 MG ECTAB PO SCH (08:00)
[2017-05-23] MEDS ORDERED: NURSING VERBAL MED ORDER ONE (08:45)
[2017-05-23] MEDS: POTASSIUM CHLORIDE INJ 40 MEQ in SODIUM CHLORIDE 0.9% 1000ML 1,000 ML IV SCH (10:00)
[2017-05-23 11:14] VITALS: BP 133/82; PULSE 71; TEMP 36.8; O2SAT 98
--- NOTE | 2017-05-23 12:18 | Discharge Instructions ---
Discharge Instructions Date of Service May 23, 2017. Admission Reason for Admission: Acute Kidney Injury, Testicular Cancer Discharge Discharge Diagnosis / Problem: nausea and vomiting Discharge Goals Goal(s): Diagnostic testing, Therapeutic intervention Activity Recommendations Activity Limitations: as noted below Lifting Limitations: gradually increase as tolerated . Current Hospital Diet Patient's current hospital diet: Regular Diet Discharge Diet Recommended Diet: Regular Diet Pending Studies Studies pending at discharge: no Medical Emergencies . Who to Call and When: Medical Emergencies: If at any time you feel your situation is an emergency, please call 911 immediately. . Non-Emergent Contact Non-Emergency issues call your: Primary Care Provider, Oncologist Call Non-Emergent contact if: temperature is above 101, your pain is unusual for you . . "Provider Documentation" section prepared by Joe Min. . VTE Core Measure Inpt VTE Proph given/why not?: Enoxaparin (Lovenox)SQ
[2017-05-23 12:20] VITALS: BP 133/82; PULSE 71; TEMP 36.8; O2SAT 98
[2017-05-23] MEDS: IV FLUIDS COMPLETED PRN (12:39)
--- NOTE | 2017-05-23 16:52 | Discharge Summary ---
Discharge Summary Date of Service May 23, 2017. Discharge Summary Admission Date: May 22, 2017 at 08:54 Discharge Date: May 23, 2017 Discharge Disposition: Home Principal Diagnosis: nausea and vomiting with dehydration Immunizations: Have You Had Influenza Vaccine: No History of Pneumococcal: No Medication Reconciliation Continued Medications: Aspirin (Aspirin Ec) 81 Mg Tab 81 MG PO QAM STOPPED TAKING 1 WEEK AGO [effexor] () 37.5 MG 1 TAB HS pt not sure of dose Discharge Exam Review of Systems: Constitutional: No fever, No chills Respiratory: No cough, No sputum Physical Exam: General Appearance: WD/WN, no apparent distress Eyes: normal inspection, sclerae normal Neurologic/Psychiatric: alert, oriented x 3 Hospital Course Mr. Omalley is a 52 year old man here for nausea and CAT who was transferred from [place] CAT nresolved with hydration Testicular cancer will follow up with Dr. Weber -for scheduled cancer treatment Deppression effexor - XR 37.5 Total Time Spent: Greater than 30 minutes This includes examination of the patient, discharge planning, medication reconciliation, and communication with other providers. Discharge Instructions Please refer to the electronic Patient Visit Report (Discharge Instructions) for additional information.
== END 2017-05-23 14:16 | disposition home or self-care (01) ==
LOC: C.4E 08:54 → INTOOBSV 08:54
PROVIDERS: ADMIT Hospitalist; ATTEND Hospitalist
DX: R11.2 Nausea with vomiting, unspecified (principal); E86.0 Dehydration; N17.9 Acute kidney failure, unspecified; C62.11 Malignant neoplasm of descended right testis; Z90.49 Acquired absence of other specified parts of digestive tract; Z98.890 Other specified postprocedural states; Z91.030 Bee allergy status; Z79.82 Long term (current) use of aspirin

== ENCOUNTER 2017-05-30 10:41 | Inpatient (IN) | payer OTHER ==
[~2017-05-30] VITALS: Ht 188 cm; Wt 100.3 kg
[~2017-05-30 10:41] MED LIST changes: -NAPR1TAB9 PO
[2017-05-30] MEDS ORDERED: ONDANSETRON INJ 2 MG/ML 2 ML VIAL IV PRN (13:30)
[2017-05-30] MEDS ORDERED: POLYETHYLENE (MIRALAX) 17 GM PACK PO PRN (13:30)
[2017-05-30] MEDS ORDERED: MAGNESIUM HYDROXIDE SUSP 30 ML UDC PO PRN (13:30)
[2017-05-30] MEDS ORDERED: ZOLPIDEM TARTRATE 5 MG TAB PO PRN (13:30)
[2017-05-30] MEDS ORDERED: ALUMINUM/MAGNESIUM/SIMETH (MAALOX MAX) 30 ML UDC PO PRN (13:30)
[2017-05-30 13:38] VITALS: BP 137/86; PULSE 75; TEMP 36.9; O2SAT 98; Ht 188 cm; Wt 100.3 kg
--- NOTE | 2017-05-30 13:48 | History and Physical ---
History & Physical Date of Service May 30, 2017. History & Physical pancytopenic ` with recent chemo, facial cellulitis, CKD [id number]
--- NOTE | 2017-05-30 14:15 | HISTORY & PHYSICAL EXAMINATION ---
DATE OF ADMISSION: 05/30/2017 This is a level 3 inpatient admission, 31 minutes. CHIEF COMPLAINT: Left facial cellulitis, pancytopenic. HISTORY OF PRESENT ILLNESS: The patient is a 52-year-old white male with a significant past medical history of acute kidney failure, testes cancer, following up with Dr. Weber with recent chemotherapy. He is transferred from [facility] because of left facial cellulitis and pancytopenia. The patient is a 52-year-old white male who has testicular cancer, had a fourth cycle of chemotherapy with Dr. Weber. He was recently discharged from this hospital because of acute kidney failure 1 week ago, and 3 days ago he developed left facial swelling, pain and was admitted to [facility]. In the hospitalization, the patient was found to have left facial cellulitis for that he was getting Zosyn. Local swelling pain has been much improved; however, he developed anemic, hemoglobin was low at 6.7, he got total of 3 units of blood transfusion, which improved to 9 grams today. He was found to have neutropenic. He got 1 dose of Neupogen 3 days ago; however, white count is still 0.7 today. His platelet levels was dropped to 31. Because of the worsening neutropenic and patient's underlying medical conditions of testis cancer status post chemotherapy, the hospitalist in [facility] requesting for the transferring. I agreed. Per report, the patient was having recent acute kidney failure, creatinine level is around 1.9-2.0 which has been stable, renal ultrasound was done in [facility] was not remarkable. The patient has no fever and chills. Blood culture in [place] has been negative so far. When I interviewed with the patient, he was awake, alert and orientated, up and walk. No fever and chill. Reports to me left facial swelling and tooth ache was significantly improved. Currently, the pain is a 10/10. He was having mild nauseation 2 days ago, which was resolved. Denied heartburn. Denied vomiting. Denied abdominal pain, diarrhea, or constipation. Denied cough, sputum, shortness of breath. Denied chest pain, palpitation, lower extremity swelling. Denied dysuria, urgency, or frequencies. Denied facial droop, slurry speeches or local weakness. PAST MEDICAL HISTORY: Include testicle cancer, the patient had a fourth chemo, recent acute kidney failure. PAST SURGICAL HISTORY: Include hernia repair, cholecystectomy and right testicle removal. FAMILY HISTORY: Not significant. Mother of multiple myeloma. SOCIAL HISTORY: Never smoked. Denied alcohol abuse disorder, denied illicit drug abuse. ALLERGIES: ALLERGIC TO BEE STING, KETOROLAC, AND TROMETHAMINE. REVIEW OF SYSTEMS: Please see HPI, otherwise 14 points organ system review were negative. MEDICATIONS: Currently taking at home which include Effexor 37.5 mg p.o. at bedtime, aspirin 81 mg p.o. daily, and Zosyn in [facility]. PHYSICAL EXAMINATION: VITAL SIGNS: The patient is afebrile, temperature 37.1. Pulse 81, respiratory rate 18, blood pressure 120/78. Pulse ox was 95% on room air. GENERAL: The patient is a white male, awake, alert and orientated, conversational, follows all commands. HEAD: Normocephalic. EYES: Pupils equal, round responds to light. EARS: Ear was normal. NOSE: Normal. sinus areas have no tender, left upper tooth mild tender, minimal local gum swelling/red/tender. NECK: Supple. Thyroid no enlargement. Trachea in midline. HEART: Regular rhythm. S1, S2. LUNGS: Decreased breathing sounds. There was no wheezing, rhonchi or crackles. ABDOMEN: Soft, nontender. Bowel sound was positive. Bilateral CVA was nontender. GENITOURINARY AND RECTAL: Deferred. SKIN: Has no rashes. LABORATORY STUDIES: In [facility]. Like I mentioned in the above, which include WBC 0.7, platelets 31,000, hemoglobin 9; creatinine 1.9. IMAGING DATA: Per report, ultrasound of the bilateral kidney was not remarkable in [facility]. ASSESSMENT AND PLAN: A 52-year-old white male with the conditions seen below: 1. Neutropenic with recent chemotherapy for testes cancer. 2. Thrombocytopenia. 3. Recent acute kidney failure. 4. Left facial cellulitis and tooth ache. 5. History of testis cancer. 6. Anxiety. Because of left facial cellulitis has been significantly improved after Zosyn which was more than 48 hours in [facility], blood culture was negative in 48 hours, and Zosyn could cause Bone marrow suppression which could caused thrombocytopenic. Therefore, I switched dosing to oral Augmentin and watch closely. For the neutropenic, patient got Neupogen 3 days ago. We will repeat the labs to see what is the level of the white count and platelets. He has recent chemotherapies for testes cancer, will have Dr. Weber to see the patient. Neutropenic precautions, follow up labs, transfusion of platelet if needed. The patient currently has no any signs of bleedings. His platelet count was up to 30. Therefore, I do not believe he need any platelet transfusion now. For the recent acute kidney failure, creatinine levels have been relatively stable in [facility], which was in the same level upon he was discharged in this hospital 6 days ago it was 1.97. We will continue to watch. Deep venous thrombosis prophylaxis will be sequential compression devices only when in bed. No heparin product because patient has severe thrombocytopenia which is contraindicated. Discussed with patient about the condition and care plan. I answered all the questions. The patient is full code. MTDD
[2017-05-30 14:29] LABS: CALCIUM 7.8 mg/dl (8.5-10.1); CREATININE 2.05 mg/dl (0.60-1.40); POTASSIUM 3.4 mmol/L (3.5-5.1)
[2017-05-30 14:32] LABS: HEMATOCRIT 26.6 % (42-52); HEMOGLOBIN 9.4 g/dL (14.0-18.0); MEAN CELL VOLUME 78.2 fL (80-100); MEAN CORPUSCULAR HEMOGLOBIN 27.6 pg (25-34); MEAN CORPUSCULAR HGB CONC 35.3 g/dl (32-36); MEAN PLATELET VOLUME 9.3 fL (7.4-10.4); PLATELET COUNT 20 K/uL (130-400); RED CELL DISTRIBUTION WIDTH CV 14.3 % (11.5-14.5); RED CELL DISTRIBUTION WIDTH SD 41.1 fL (36.4-46.3); WHITE BLOOD COUNT 0.91 K/uL (4.8-10.8)
[2017-05-30 14:38] LABS: BASO % 1.1 %; BASO ABS # 0.01 K/uL (0-0.2); LYMPH % 85.7 %; LYMPH ABS # 0.78 K/uL (1.2-3.4); NEUT % 2.2 %; NEUT ABS # 0.02 K/uL (1.4-6.5)
[2017-05-30] MEDS ORDERED: MAGNESIUM SULFATE 1GM / D5W 1 GM in PREMIXED IN D5W 100 ML IV STA (14:41)
[2017-05-30] MEDS ORDERED: POTASSIUM CHLORIDE 10 MEQ TABCR PO STA (14:42)
[2017-05-30] MEDS ORDERED: AMOXICILLIN/CLAVULANATE TAB 875 MG TAB PO SCH (15:00)
[2017-05-30 15:13] VITALS: BP 131/84; PULSE 75; TEMP 36.8; O2SAT 96
[2017-05-30 16:00] VITALS: O2SAT 96
[2017-05-30] MEDS ORDERED: NURSING VERBAL MED ORDER ONE (17:30)
[2017-05-30] MEDS ORDERED: MAGNESIUM SULFATE 1GM / D5W 1 GM in PREMIXED IN D5W 100 ML IV SCH (18:00)
[2017-05-30] MEDS: MAGNESIUM OXIDE 400 MG TAB PO SCH (19:43)
[2017-05-30] MEDS: VENLAFAXINE HCL XR 37.5 MG CAPXR PO SCH (19:44)
[2017-05-30 20:18] VITALS: BP 132/87; PULSE 73; TEMP 37.1; O2SAT 99
[2017-05-30] MEDS: ACETAMINOPHEN 325 MG TAB PO PRN (23:13)
--- NOTE | 2017-05-30 23:50 | Progress Note ---
Progress Note Date of Service May 30, 2017. Progress Note Contacted regarding progressive lumbar back pain. Patient states this started at 1500 today and was more of an ache however now it is a 10/10 sharp burning sensation in bilat lumbar regions. no radiation and worse with movement, laying flat and improves with standing, no incontinence on exam no LE weakness, DTR patellar +2 bilat, negative straight neg bilat, spinal tenderness in lumbar region as well as paraspinal bilaterally with even light palpation, some paraspinal lumbar muscle spasm can be palpated on right side patient has not had pain like this in the past, can not recall any particular movement prior to the onset of pain nor recent trauma pain control and lumbar spine, trial flexeril, in light of testicular ca and spinal tenderness however most likely muscle strain as no red flag signs aside from spinal tenderness UA, poor PO fluid intake so will add NSS @ 100cc/h for his CAT and poor u/o; hypovolemic on assessment
[2017-05-31] VITALS (20 sets, daily range): BP systolic 105–144; BP diastolic 60–84; PULSE 69–87; TEMP 36.5–37.6; O2SAT 94–100
[2017-05-31] MEDS ORDERED: CYCLOBENZAPRINE HCL 5 MG TAB PO PRN
[2017-05-31] MEDS: TRAMADOL HCL 50 MG TAB PO PRN ×2 (00:33→20:13)
[2017-05-31] MEDS: SODIUM CHLORIDE 0.9% 1000ML 1,000 ML IV SCH ×3 (01:15→20:05)
[2017-05-31 07:03] LABS: CALCIUM 7.2 mg/dl (8.5-10.1); CREATININE 1.97 mg/dl (0.60-1.40); POTASSIUM 3.5 mmol/L (3.5-5.1)
[2017-05-31] MEDS: HYDROmorphone INJ 1 MG/ML SYR IV PRN ×3 (07:20→17:04)
[2017-05-31 07:24] LABS: HEMATOCRIT 22.6 % (42-52); HEMOGLOBIN 8.2 g/dL (14.0-18.0); MEAN CELL VOLUME 76.9 fL (80-100); MEAN CORPUSCULAR HEMOGLOBIN 27.9 pg (25-34); MEAN CORPUSCULAR HGB CONC 36.3 g/dl (32-36); MEAN PLATELET VOLUME 9.5 fL (7.4-10.4); PLATELET COUNT 11 K/uL (130-400); RED CELL DISTRIBUTION WIDTH CV 14.2 % (11.5-14.5); RED CELL DISTRIBUTION WIDTH SD 40.5 fL (36.4-46.3); WHITE BLOOD COUNT 1.08 K/uL (4.8-10.8)
[2017-05-31] MEDS: MAGNESIUM OXIDE 400 MG TAB PO SCH ×2 (08:00→20:00)
[2017-05-31] MEDS ORDERED: NURSING VERBAL MED ORDER ONE ×4 (08:30→10:15)
[2017-05-31] MEDS ORDERED: PROMETHAZINE HCL INJ 12.5 MG in SODIUM CHLORIDE 0.9% 50ML 50 ML IV STA (08:52)
[2017-05-31] MEDS: MAGNESIUM SULFATE 1GM / D5W 1 GM in PREMIXED IN D5W 100 ML IV SCH ×2 (10:00→10:51)
--- NOTE | 2017-05-31 10:17 | DIAGNOSTIC IMAGING REPORT ---
LUMBAR SPINE 3 VIEWS CLINICAL HISTORY: Low back pain. FINDINGS: AP, lateral, and coned-down views of the lumbar spine are correlated with abdominal CT dated 02/13/2017. The skeletal structures are well mineralized. There is no radiographic evidence of fracture or malalignment. Vertebral body height and alignment are maintained throughout the lumbar spine. The transverse and spinous processes appear intact. Tiny anterior osteophytes are seen throughout. Mild facet arthropathy is seen in the lower lumbar region. The disc spaces are preserved. Minimal endplate sclerosis is seen at T12-L1 and L1-L2. The visualized bony pelvis appears intact. Cholecystectomy clips are noted. There is no bowel obstruction. Mild colonic fecal retention is observed. IMPRESSION: No acute bony abnormality is identified involving the lumbar spine. Dictated: 05/31/2017 9:57 AM Transcribed: 05/31/2017 10:16 AM Leslie Electronically signed by: Rigoberto Booth M.D. 05/31/2017 10:24 AM Dictated Date/Time: 05/31/2017 9:57 AM
--- NOTE | 2017-05-31 11:36 | Progress Note ---
Subjective Date of Service: May 31, 2017. Subjective Pt evaluation today including: conversation w/ patient, physical exam, chart review, lab review, review of studies, review of inpatient medication list PO Intake: good Voiding: no voiding problems, no incontinence Pt does have bad nausea, and vomiting this morning, zofran did not help so we gave promethazine and it worked. Pt denies chest pain, sob, dizziness, palpation and loss of consciousness. Pt facial swelling resolve completely. Review of Systems All Other Systems: Reviewed and Negative Medications Medications (Trade) Dose Ordered Sig/Rhoda Route Start Time Stop Time Status Last Admin Dose Admin Acetaminophen (Tylenol Tab) 650 mg Q4H PRN PO 05/30/17 13:30 06/29/17 13:29 05/30/17 23:13 650 MG Ondansetron HCl (Zofran Inj) 4 mg Q6H PRN IV 05/30/17 13:30 06/29/17 13:29 05/31/17 07:16 4 MG Magnesium Oxide (Mag-Ox Tab) 400 mg BID PO 05/30/17 20:00 06/02/17 19:59 05/30/17 19:43 400 MG Magnesium Sulfate 1 gm/Prmx 100 ml @ 100 mls/hr NOW STAT IV 05/30/17 14:41 05/30/17 15:40 DC 05/30/17 15:20 100 MLS/HR Potassium Chloride (Klor-Con M10) 20 meq NOW STAT PO 05/30/17 14:42 05/30/17 14:43 DC 05/30/17 15:20 20 MEQ Magnesium Sulfate 1 gm/Prmx 100 ml @ 100 mls/hr TODAY@1800 IV 05/30/17 18:00 05/30/17 20:00 DC 05/30/17 18:14 100 MLS/HR Tramadol HCl (Ultram Tab) 50 mg BID PRN PO 05/30/17 23:45 06/29/17 23:44 05/31/17 00:33 50 MG Hydromorphone HCl (Dilaudid Inj) 1 mg Q4H PRN IV 05/30/17 23:45 06/13/17 23:44 05/31/17 07:20 1 MG Sodium Chloride 1,000 ml @ 100 mls/hr Q10H IV 05/31/17 00:00 06/30/17 00:00 05/31/17 10:52 100 MLS/HR Magnesium Sulfate 1 gm/Prmx 100 ml @ 100 mls/hr Q1H IV 05/31/17 09:00 05/31/17 10:59 DC 05/31/17 10:00 100 MLS/HR Promethazine HCl 12.5 mg/Sodium Chloride 50.5 ml @ 202 mls/hr NOW STAT IV 05/31/17 08:52 05/31/17 09:06 DC 05/31/17 10:52 202 MLS/HR Objective Vital Signs Date Time Temp Pulse Resp B/P (MAP) Pulse Ox O2 Delivery O2 Flow Rate FiO2 05/31/17 07:35 36.7 77 20 120/77 (91) 95 05/31/17 04:00 36.5 77 20 121/73 (89) 97 Room Air 05/31/17 00:24 37.3 80 20 123/82 (96) 97 Room Air 05/31/17 00:00 Room Air 05/30/17 20:18 37.1 73 20 132/87 (102) 99 Room Air 05/30/17 20:00 Room Air 05/30/17 16:00 96 Room Air 05/30/17 15:13 36.8 75 18 131/84 (100) 96 05/30/17 13:38 36.9 75 20 137/86 98 Room Air Physical Exam General Appearance: WD/WN, no apparent distress Eyes: EOMI Respiratory/Chest: chest non-tender, lungs clear, normal breath sounds, no respiratory distress, no accessory muscle use Cardiovascular: regular rate, rhythm, no edema, no gallop, no JVD, no murmur Abdomen: normal bowel sounds, soft, no organomegaly Neurologic/Psychiatric: alert, normal mood/affect, oriented x 3 Skin: no rash Comments: GENERAL: awake, alert and orientated, conversational, follows all commands. HEAD: Normocephalic. EYES: Pupils equal, round responds to light. EARS: Ear was normal. NOSE: Normal. sinus areas have no tender, left upper tooth mild tender, minimal local gum swelling/red/tender. NECK: Supple. Thyroid no enlargement. Trachea in midline. HEART: Regular rhythm. S1, S2. LUNGS: Decreased breathing sounds. There was no wheezing, rhonchi or crackles. ABDOMEN: Soft, nontender. Bowel sound was positive. Bilateral CVA was nontender. SKIN: no rashes. Laboratory Results Last 24 Hours Test 05/30/17 13:50 05/31/17 00:00 05/31/17 05:18 White Blood Count 0.91 K/uL 1.08 K/uL Red Blood Count 3.40 M/uL 2.94 M/uL Hemoglobin 9.4 g/dL 8.2 g/dL Hematocrit 26.6 % 22.6 % Mean Corpuscular Volume 78.2 fL 76.9 fL Mean Corpuscular Hemoglobin 27.6 pg 27.9 pg Mean Corpuscular Hemoglobin Concent 35.3 g/dl 36.3 g/dl Platelet Count 20 K/uL 11 K/uL Mean Platelet Volume 9.3 fL 9.5 fL Neutrophils (%) (Auto) 2.2 % Lymphocytes (%) (Auto) 85.7 % Monocytes (%) (Auto) 11.0 % Eosinophils (%) (Auto) 0.0 % Basophils (%) (Auto) 1.1 % Neutrophils # (Auto) 0.02 K/uL Lymphocytes # (Auto) 0.78 K/uL Monocytes # (Auto) 0.10 K/uL Eosinophils # (Auto) 0.00 K/uL Basophils # (Auto) 0.01 K/uL RDW Standard Deviation 41.1 fL 40.5 fL RDW Coefficient of Variation 14.3 % 14.2 % Immature Granulocyte % (Auto) 0.0 % Immature Granulocyte # (Auto) 0.00 K/uL Platelet Estimate SIGNIFIC DECREASED Sodium Level 137 mmol/L 139 mmol/L Potassium Level 3.4 mmol/L 3.5 mmol/L Chloride Level 101 mmol/L 103 mmol/L Carbon Dioxide Level 27 mmol/L 26 mmol/L Anion Gap 9.0 mmol/L 10.0 mmol/L Blood Urea Nitrogen 25 mg/dl 27 mg/dl Creatinine 2.05 mg/dl 1.97 mg/dl Est Creatinine Clear Calc Drug Dose 50.1 ml/min 52.2 ml/min Estimated GFR () 42.5 44.6 Estimated GFR (Non- 36.7 38.5 BUN/Creatinine Ratio 12.0 13.5 Random Glucose 127 mg/dl 79 mg/dl Calcium Level 7.8 mg/dl 7.2 mg/dl Magnesium Level 0.7 mg/dl 1.0 mg/dl Urine Color YELLOW Urine Appearance CLEAR Urine pH 5.0 Urine Specific Brave 1.008 Urine Protein NEG Urine Glucose (UA) NEG Urine Ketones NEG Urine Occult Blood 2+ Urine Nitrite NEG Urine Bilirubin NEG Urine Urobilinogen NEG Urine Leukocyte Esterase NEG Urine WBC (Auto) 10-30 /hpf Urine RBC (Auto) 5-10 /hpf Urine Hyaline Casts (Auto) 0 /lpf Urine Epithelial Cells (Auto) >30 /lpf Urine Bacteria (Auto) NEG Neutrophils % (Manual) 5.5 % Lymphocytes % (Manual) 89.1 % Monocytes % (Manual) 1.8 % Metamyelocytes % 2.7 % Myelocytes % 0.9 % Neutrophils # (Manual) 0.06 K/uL Total Absolute Neutrophils 0.06 K/uL Lymphocytes # (Manual) 0.96 K/uL Total Absolute Lymphocytes 0.96 K/uL Monocytes # (Manual) 0.02 K/uL Metamyelocytes # 0.03 K/uL Myelocytes # 0.01 K/uL Toxic Granulation 2+ Dohle Bodies 2+ Large Platelets 1+ Assessment and Plan A 52-year-old white male with the conditions seen below: 1. Neutropenic with recent chemotherapy for testes cancer. -- Absolute neutrophil count is 0.06 today -- s/p chemotherapy -- Dr Weber recommendation as below -- Neutropenic precaution 2. Thrombocytopenia. -- s/p Neupogen 4 days ago. -- Platelets count drop to 11 from 20, -- type and cross 2 units of PRBC now, consent obtained -- type and cross platelet pheresis as per hem/onc 3. Recent acute kidney failure. -- creatinine levels have been relatively stable in [facility], improved slightly 1.97 which was in the same level upon he was discharged in this hospital 6 days ago it was 1.97. -- Monitor renal function 4. Left facial cellulitis and tooth ache. improved -- Improved after Zosyn which was given in [facility], blood culture was negative in 48 hours, -- Zosyn could potentially cause Bone marrow suppression and further decrease platelet count. -- Continue Augmentin and if patient can not swallow crush the tablet and mix with apple sauce. 5. Anxiety. 6. Hypomagnesemia - Will give Mg sulfate 2 gram iv x1 - Continue oral mg oxide DVT: sequential compression devices only when in bed. No heparin product because patient has severe thrombocytopenia which is contraindicated. The patient is full code. Continued [facility] stay due to: multiple IV medications needed, home environment unsafe for pt Discharge planning: home with home health
[2017-05-31] MEDS ORDERED: DEXAMETHASONE INJ 4 MG in SYRINGE 0 ML IV PRN (11:45)
[2017-05-31] MEDS ORDERED: ONDANSETRON INJ 8 MG in DEXTROSE 5% 50ML 50 ML IV PRN (12:00)
[2017-05-31] MEDS: AMOXICILLIN/CLAVULANATE POTAS 600 MG/5 ML UDP PO SCH ×2 (15:08→20:13)
[2017-05-31] MEDS: VENLAFAXINE HCL XR 37.5 MG CAPXR PO SCH (20:06)
[2017-06-01] VITALS (9 sets, daily range): BP systolic 118–147; BP diastolic 72–84; PULSE 64–81; TEMP 36.8–37.2; O2SAT 93–99
[2017-06-01] MEDS: HYDROmorphone INJ 1 MG/ML SYR IV PRN ×2 (00:01→06:22)
[2017-06-01] MEDS: SODIUM CHLORIDE 0.9% 1000ML 1,000 ML IV SCH ×2 (03:59→15:00)
[2017-06-01 06:19] LABS: CREATININE 1.83 mg/dl (0.60-1.40); PHOSPHORUS 2.1 mg/dl (2.5-4.9); POTASSIUM 3.5 mmol/L (3.5-5.1)
[2017-06-01 06:46] LABS: HEMATOCRIT 27.2 % (42-52); HEMOGLOBIN 9.8 g/dL (14.0-18.0); MEAN CELL VOLUME 77.7 fL (80-100); PLATELET COUNT 16 K/uL (130-400); RED CELL DISTRIBUTION WIDTH CV 14.3 % (11.5-14.5); RED CELL DISTRIBUTION WIDTH SD 40.9 fL (36.4-46.3)
--- NOTE | 2017-06-01 07:43 | ONCOLOGY CONSULTATION ---
DATE OF CONSULTATION: 05/31/2017 REASON FOR CONSULTATION: Left facial cellulitis, pancytopenia, intractable nausea and vomiting. 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 Yared had been originally treated with a combination of bleomycin, etoposide and cisplatin; unfortunately, developed pulmonary toxicity and completed his final cycle of etoposide and cisplatin on 05/21/2016. Apparently had presented to [facility] with acute renal failure and left facial cellulitis. He was prescribed broad spectrum antibiotics. Developed treatment induced anemia and received 3 units of packed RBCs. He was subsequently transferred from [facility] to our facility. Yared continues to receive broad spectrum antibiotics. Erythema involving his left periorbital area has improved. Now today, he has developed intractable nausea and vomiting. Again, his last course of chemotherapy was administered on May 21. Primary service is requesting assistance very pleasant gentleman for treatment-induced neutropenia, left facial cellulitis, and nausea and vomiting. PAST MEDICAL HISTORY: Positive for arthritis and metastatic testicular cancer. PAST SURGICAL HISTORY: Cholecystectomy, right inguinal orchiectomy. MEDICATIONS: Effexor 37.5 mg p.o. daily, aspirin 81 mg p.o. daily. He was also on p.r.n. Zofran and Compazine for nausea. He was started on Zosyn at [facility]. ALLERGIES: BEE STINGS, KETOROLAC, TRIMETHYLAMINE. FAMILY HISTORY: Noncontributory. SOCIAL HISTORY: The patient is self-employed, , multiple children, nonsmoker, very rare social alcohol. REVIEW OF SYSTEMS: CONSTITUTIONAL: As per HPI most notably for nausea and vomiting, fatigue, no current fevers, chills or sweats. He is maintaining his weight and appetite. SKIN: Left facial cellulitis was diagnosed at [place], continues antibiotics. HEENT: Negative for headaches, lightheadedness, dizziness. No acute visual or hearing deficits. No sinus symptoms, sore throat or dysphagia. LYMPH: No history of lymphoproliferative disorder. CARDIAC: No history of coronary artery disease, no angina or palpitations. PULMONARY: Negative for COPD. No shortness of breath, dyspnea or orthopnea. No cough or hemoptysis. GASTROINTESTINAL: Positive for nausea and vomiting. No current abdominal pain. No diarrhea or constipation reported. GENITOURINARY: No hematuria, dysuria, urinary incontinence. PSYCHIATRIC: Positive for anxiety. ENDOCRINE: Negative for diabetes or thyroid disease. NEUROLOGIC: Negative for seizure, stroke, or migraine headache. HEMATOLOGIC: Positive for treatment-induced cytopenias. PHYSICAL EXAMINATION: GENERAL: Yared is a pleasant 52-year-old gentleman in no acute distress. VITAL SIGNS: Temperature 36.7, pulse 77, respirations 20, blood pressure 120/77. SKIN: Without rash or lesion. HEENT: : Head: Atraumatic, normocephalic. Eyes: PERRLA, EOMI. Sclerae nonicteric. No conjunctival injection. Nose: Nares patent without rhinorrhea or discharge. Mouth: Throat clear. Tongue midline. Mucous membranes are moist. NECK: Supple without JVD or thyromegaly. LYMPH: No cervical, supraclavicular, axillary or inguinal palpable nodes. HEART: Regular rate and rhythm. No clicks, rubs, murmurs or gallops. LUNGS: Clear to auscultation bilaterally. ABDOMEN: Soft, nontender, nondistended, without palpable hepatosplenomegaly. EXTREMITIES: No calf tenderness or swelling. No clubbing, cyanosis or edema. NEUROLOGICALLY: He is awake, alert and oriented x3. Cranial nerves II-XII are intact. LABORATORY DATA: WBC count 1.08, hemoglobin 8.2, platelet count 11,000. Sodium 139, potassium 3.5, chloride 103, carbon dioxide 26, BUN 27, creatinine 1.97, magnesium 1. IMPRESSION: 1. Left facial cellulitis. 2. Treatment-induced cytopenias. 3. Hypomagnesemia. 4. Acute renal injury. 5. Intractable nausea and vomiting. 6. Lower lumbar pain, I suspect secondary to high dose granulocyte colony-stimulating growth factor. PLAN: Yared has several clinical issues at present. He received Neupogen on my order yesterday. Overnight he developed lumbar and pelvic girdle pain. This commonly seen in patients receiving high dose Neupogen. We would provide low dose opioids versus anti-inflammatories. However, with his renal insufficiency, I would probably avoid nonsteroidal anti-inflammatory agents until his renal function stabilizes. We would continue antibiotics as ordered for cellulitis. Continue to support him with transfusion. Perhaps a unit of single donor platelets as well as 2 more units of packed RBCs would be reasonable to improve his peripheral counts. As for nausea management, perhaps the addition of a low dose dexamethasone 4 mg with the IV dose of Zofran would be helpful. We will continue to follow Yared periodically during his hospital stay, and I thank you very much for assisting us in the care of this very pleasant gentleman. Fortunately, he has completed his chemotherapy course and we will plan on posttreatment scans in the next couple of weeks post-discharge. MTDD
[2017-06-01] MEDS: AMOXICILLIN/CLAVULANATE POTAS 600 MG/5 ML UDP PO SCH ×2 (08:06→17:56)
[2017-06-01] MEDS: MAGNESIUM OXIDE 400 MG TAB PO SCH ×2 (08:06→20:19)
[2017-06-01] MEDS: ACETAMINOPHEN 325 MG TAB PO PRN (08:10)
--- NOTE | 2017-06-01 08:46 | HEME/ONC PROGRESS NOTE ---
DATE: 06/01/2017 DIAGNOSES: 1. Left facial cellulitis. 2. Treatment-induced cytopenias. 3. Hypomagnesemia. 4. Acute renal injury. 5. Intractable nausea and vomiting. 6. Lower lumbar pain, I suspect secondary to granulocyte colony-stimulating growth factor. SUBJECTIVE: I saw Mr. Omalley at bedside, trying to enjoy his breakfast. Still has a little bit of nausea with phlegm production. Again, Yared recently completed etoposide and cisplatin on 05/21/2017 and believe most of his symptoms are related to chemotherapy. Nausea has improved a little bit. His renal function is retreating toward normal; however, there are still electrolyte abnormalities to be corrected. The erythema involving his left periorbital area is also improved. Nursing voices no overnight concerns. The patient still has some musculoskeletal discomfort, again, I suspect secondary to Neupogen. PHYSICAL EXAMINATION: GENERAL: He is in no acute distress. VITAL SIGNS: Current temperature 36.9, pulse 69, respirations 20, blood pressure 118/74. SKIN: Without rash or lesion. HEENT: No evidence of thrush. NECK: Supple. HEART: Regular rate and rhythm. No clicks, rubs, murmurs or gallops. LUNGS: Clear to auscultation bilaterally. ABDOMEN: Soft, nontender, nondistended. EXTREMITIES: No clubbing, cyanosis or edema. NEUROLOGIC: Grossly intact. LABORATORY DATA: WBC count 2800, hemoglobin 9.8, platelet count 16,000. His neutrophil count is approximately 800. Sodium 137, potassium 3.5, chloride 103, carbon dioxide 27, BUN 22, creatinine 1.83, phosphorus 2.1, magnesium 1.1. IMPRESSION: 1. Electrolyte dysfunction. 2. Treatment-induced cytopenias, particularly thrombocytopenia. 3. Acute renal injury. 4. Intractable nausea and vomiting. 5. Lower lumbar pain attributable to granulocyte colony-stimulating growth factor. PLAN: Yared's clinical issues are slowly resolving. He has improved in regard to the nausea and vomiting, is trying to consume his breakfast this morning. He is ambulating ad cristy. Creatinine is slowly improving but clearly requires further electrolyte replacement. Added low-dose dexamethasone with Zofran which we will continue during his hospital stay. His platelet count hopefully has nadired and we will hold off on transfusion from this point forward if clinically feasible. Yared has completed his full complement of chemotherapy and will plan on posttreatment scans in the next 2-3 weeks with expedient followup thereafter. We will continue to follow him periodically during his stay. Thank you again for assisting us in the care of this pleasant gentleman.
[2017-06-01] MEDS ORDERED: MAGNESIUM SULFATE 1GM / D5W 1 GM in PREMIXED IN D5W 100 ML IV ONE (10:30)
[2017-06-01] MEDS: TRAMADOL HCL 50 MG TAB PO PRN (10:34)
[2017-06-01] MEDS ORDERED: NURSING VERBAL MED ORDER ONE (18:15)
[2017-06-01] MEDS ORDERED: TRAMADOL HCL 50 MG TAB PO PRN (18:30)
--- NOTE | 2017-06-01 19:14 | Hospitalist Progress Note ---
Hospitalist Progress Note Date of Service Jun 01, 2017. Subjective Pt evaluation today including: conversation w/ patient, physical exam, chart review, lab review, review of studies, review of inpatient medication list Patient seen and evaluated. No acute events overnight. Patient reports feeling much more improved. Laboratories continue to improve however has some electrolyte abnormalities. However, patient looks fantastic and is ambulating the hallways. Patient states that his nausea is improving but is having a lot of phlegm that he coughs up and somewhat gags on throughout the day. Reporting very minimal swelling of the face at this point. He denies any facial pain or erythema. Constitutional: No fever, No chills Respiratory: No cough, No shortness of breath Cardiovascular: No chest pain Abdomen: No pain, No nausea, No vomiting Musculoskeletal: + joint pain (low back pain - improving ) Male : No dysuria Heme: No abnormal bleeding/bruising Skin: No rash Medications Current Inpatient Medications Medications (Trade) Dose Ordered Sig/Rhoda Route Start Time Stop Time Status Last Admin Dose Admin Acetaminophen (Tylenol Tab) 650 mg Q4H PRN PO 05/30/17 13:30 06/29/17 13:29 06/01/17 08:10 650 MG Al Hydrox/Mg Hydrox/Simethicone (Maalox Max Susp) 15 ml Q4H PRN PO 05/30/17 13:30 06/29/17 13:29 Magnesium Hydroxide (Milk Of Magnesia Susp) 30 ml Q6H PRN PO 05/30/17 13:30 06/29/17 13:29 Polyethylene (Miralax Powder Packet) 17 gm DAILY PRN PO 05/30/17 13:30 06/29/17 13:29 Zolpidem Tartrate (Ambien Tab) 5 mg HSZ PRN PO 05/30/17 13:30 06/29/17 13:29 Venlafaxine HCl (effeXOR EXTENDED REL CAP) 75 mg HS PO 05/30/17 21:00 06/29/17 20:59 Magnesium Oxide (Mag-Ox Tab) 400 mg BID PO 05/30/17 20:00 06/02/17 19:59 06/01/17 08:06 400 MG Hydromorphone HCl (Dilaudid Inj) 1 mg Q4H PRN IV 05/30/17 23:45 06/13/17 23:44 06/01/17 06:22 1 MG Sodium Chloride 1,000 ml @ 100 mls/hr Q10H IV 05/31/17 00:00 06/30/17 00:00 06/01/17 15:00 100 MLS/HR Cyclobenzaprine HCl (Flexeril Tab) 5 mg TID PRN PO 05/31/17 00:00 06/30/17 00:00 Amoxicillin/ Clavulanate Potassium (Amoxicillin/ Clavulanate 600MG/ 42.9MG 5 Ml EMA) 600 mg BIDM PO 05/31/17 08:15 06/10/17 08:14 06/01/17 17:56 600 MG Dexamethasone Sodium Phosphate 4 mg/Syringe 1 ml @ 1 mls/min Q6H PRN IV 05/31/17 11:45 06/30/17 11:44 Ondansetron HCl 8 mg/Dextrose 54 ml @ 216 mls/hr Q6 PRN IV 05/31/17 12:00 06/30/17 11:59 Tramadol HCl (Ultram Tab) 50 mg Q4H PRN PO 06/01/17 18:30 07/01/17 18:29 Objective Vital Signs Date Time Temp Pulse Resp B/P (MAP) Pulse Ox O2 Delivery O2 Flow Rate FiO2 06/01/17 16:41 37.0 80 22 126/81 (96) 93 Room Air 06/01/17 16:24 36.8 64 18 132/82 (99) 97 Room Air 06/01/17 15:52 Room Air 06/01/17 11:16 37.0 67 20 134/81 (98) 95 Room Air 06/01/17 08:30 97 Room Air 06/01/17 07:40 36.9 69 20 118/74 (89) 97 Room Air 06/01/17 04:00 37.1 81 20 136/84 (101) 98 Room Air 06/01/17 00:00 Room Air 06/01/17 00:00 36.9 77 20 132/81 (98) 99 Room Air 05/31/17 20:00 Room Air 05/31/17 20:00 37.3 76 20 144/60 (88) 98 Room Air Physical Exam General Appearance: WD/WN, no apparent distress Eyes: sclerae normal ENT: hearing grossly normal Neck: supple, no JVD, trachea midline Respiratory/Chest: lungs clear, normal breath sounds, no respiratory distress, no accessory muscle use Cardiovascular: regular rate, rhythm, no gallop, no murmur Abdomen: normal bowel sounds, non tender, soft Extremities: no pedal edema Neurologic/Psychiatric: alert, oriented x 3 Skin: normal color, warm/dry Laboratory Results Last 24 Hours Test 06/01/17 05:31 White Blood Count 2.80 K/uL Red Blood Count 3.50 M/uL Hemoglobin 9.8 g/dL Hematocrit 27.2 % Mean Corpuscular Volume 77.7 fL Mean Corpuscular Hemoglobin 28.0 pg Mean Corpuscular Hemoglobin Concent 36.0 g/dl Platelet Count 16 K/uL Mean Platelet Volume 9.0 fL RDW Standard Deviation 40.9 fL RDW Coefficient of Variation 14.3 % Neutrophils % (Manual) 27.7 % Lymphocytes % (Manual) 54.4 % Monocytes % (Manual) 8.0 % Metamyelocytes % 5.4 % Myelocytes % 4.5 % Neutrophils # (Manual) 0.78 K/uL Total Absolute Neutrophils 0.78 K/uL Lymphocytes # (Manual) 1.52 K/uL Total Absolute Lymphocytes 1.52 K/uL Monocytes # (Manual) 0.22 K/uL Metamyelocytes # 0.15 K/uL Myelocytes # 0.13 K/uL Toxic Granulation 1+ Sodium Level 137 mmol/L Potassium Level 3.5 mmol/L Chloride Level 103 mmol/L Carbon Dioxide Level 27 mmol/L Anion Gap 7.0 mmol/L Blood Urea Nitrogen 22 mg/dl Creatinine 1.83 mg/dl Est Creatinine Clear Calc Drug Dose 56.2 ml/min Estimated GFR () 48.8 Estimated GFR (Non- 42.1 BUN/Creatinine Ratio 12.3 Random Glucose 91 mg/dl Calcium Level 7.0 mg/dl Phosphorus Level 2.1 mg/dl Magnesium Level 1.1 mg/dl Assessment and Plan A 52-year-old white male with the conditions seen Pancytopenia/Neutropenic with Recent Chemotherapy from Testicular Cancer: - Recieved blood transfusions in [place] and had platelets and PRBC on 05/31 - no signs of bleeding and patient reports feeling well - Continue to monitor labs and hold further transfusions - Oncology following - appreciate recommendations - plan for outpatient scans 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: - Patient reports his kidney numbers fluctuate frequently - but are improving currently L Facial Cellulitis and Poor Denitition: - Received Zosyn in [place] - question of possible bone marrow suppression - Continue Augmentin BID at this time Hypomagnesemia: - Continue to monitor and replete as necessary DVT: SCDS Disposition: - Continue to try and improve electrolytes and counts - hopefully D/C next 1-2 days Discharge planning: home
[2017-06-01] MEDS: VENLAFAXINE HCL XR 37.5 MG CAPXR PO SCH (20:19)
[2017-06-02] MEDS: SODIUM CHLORIDE 0.9% 1000ML 1,000 ML IV SCH ×2 (01:01→11:07)
[2017-06-02 03:30] VITALS: BP 126/79; PULSE 72; TEMP 37.1; O2SAT 96
[2017-06-02 06:28] LABS: HEMATOCRIT 26.6 % (42-52); HEMOGLOBIN 9.6 g/dL (14.0-18.0); MEAN CELL VOLUME 77.8 fL (80-100); MEAN CORPUSCULAR HEMOGLOBIN 28.1 pg (25-34); MEAN CORPUSCULAR HGB CONC 36.1 g/dl (32-36); PLATELET COUNT 14 K/uL (130-400); RED CELL DISTRIBUTION WIDTH CV 14.3 % (11.5-14.5); RED CELL DISTRIBUTION WIDTH SD 41.1 fL (36.4-46.3); WHITE BLOOD COUNT 5.59 K/uL (4.8-10.8)
[2017-06-02 06:31] LABS: CALCIUM 7.3 mg/dl (8.5-10.1); CREATININE 1.76 mg/dl (0.60-1.40); POTASSIUM 3.4 mmol/L (3.5-5.1)
[2017-06-02 07:24] VITALS: BP 127/80; PULSE 68; TEMP 37; O2SAT 95
[2017-06-02] MEDS: MAGNESIUM OXIDE 400 MG TAB PO SCH (08:44)
[2017-06-02] MEDS: AMOXICILLIN/CLAVULANATE POTAS 600 MG/5 ML UDP PO SCH ×2 (08:44→17:08)
[2017-06-02] MEDS ORDERED: POTASSIUM CHLORIDE 20 MEQ TABCR PO STA (09:06)
[2017-06-02 11:18] VITALS: BP 134/76; PULSE 74; TEMP 36.8; O2SAT 94
--- NOTE | 2017-06-02 13:58 | Hematology/Oncology Prog Note ---
Hematology/Onc Progress Note Date of Service Jun 02, 2017. Diagnoses History of testicular carcinoma status post chemotherapy with the last cycle being given May 21. He is now admitted with pancytopenia and what was felt to be a facial cellulitis. Medications Medications Administered Medications (Trade) Dose Ordered Sig/Rhoda Route Start Time Stop Time Status Last Admin Dose Admin Acetaminophen (Tylenol Tab) 650 mg Q4H PRN PO 05/30/17 13:30 06/29/17 13:29 06/01/17 08:10 650 MG Ondansetron HCl (Zofran Inj) 4 mg Q6H PRN IV 05/30/17 13:30 05/31/17 11:38 DC 05/31/17 07:16 4 MG Magnesium Oxide (Mag-Ox Tab) 400 mg BID PO 05/30/17 20:00 06/02/17 19:59 06/02/17 08:44 400 MG Magnesium Sulfate 1 gm/Prmx 100 ml @ 100 mls/hr NOW STAT IV 05/30/17 14:41 05/30/17 15:40 DC 05/30/17 15:20 100 MLS/HR Potassium Chloride (Klor-Con M10) 20 meq NOW STAT PO 05/30/17 14:42 05/30/17 14:43 DC 05/30/17 15:20 20 MEQ Magnesium Sulfate 1 gm/Prmx 100 ml @ 100 mls/hr TODAY@1800 IV 05/30/17 18:00 05/30/17 20:00 DC 05/30/17 18:14 100 MLS/HR Tramadol HCl (Ultram Tab) 50 mg BID PRN PO 05/30/17 23:45 06/01/17 18:30 DC 06/01/17 10:34 50 MG Hydromorphone HCl (Dilaudid Inj) 1 mg Q4H PRN IV 05/30/17 23:45 06/13/17 23:44 06/01/17 06:22 1 MG Sodium Chloride 1,000 ml @ 100 mls/hr Q10H IV 05/31/17 00:00 06/02/17 12:12 DC 06/02/17 11:07 100 MLS/HR Amoxicillin/ Clavulanate Potassium (Amoxicillin/ Clavulanate 600MG/ 42.9MG 5 Ml EMA) 600 mg BIDM PO 05/31/17 08:15 06/10/17 08:14 06/02/17 08:44 600 MG Magnesium Sulfate 1 gm/Prmx 100 ml @ 100 mls/hr Q1H IV 05/31/17 09:00 05/31/17 10:59 DC 05/31/17 10:00 100 MLS/HR Promethazine HCl 12.5 mg/Sodium Chloride 50.5 ml @ 202 mls/hr NOW STAT IV 05/31/17 08:52 05/31/17 09:06 DC 05/31/17 10:52 202 MLS/HR Magnesium Sulfate 1 gm/Prmx 100 ml @ 100 mls/hr NOW ONCE IV 06/01/17 10:30 06/01/17 11:29 DC 06/01/17 10:29 100 MLS/HR Tramadol HCl (Ultram Tab) 50 mg Q4H PRN PO 06/01/17 18:30 07/01/17 18:29 06/01/17 20:18 50 MG Subjective Need to be doing well. He is afebrile. He states that the pain and he had on the left side of his face is no longer present. He has essentially negative review of systems and is anxious for discharge. Review of Systems: Constitutional: Negative for weight loss, night sweats, or fever Eyes: Negative for event change of vision ENT: Negative for epistaxis, nasal discharge, sore throat, or deafness Cardiovascular: Negative for chest pain, palpitations, dizziness, diaphoresis Respiratory: Negative for new shortness of breath,hemoptysis, or purulent cough Gastrointestinal: Negative for diarrhea, hematemesis, melena, nausea, vomiting , or dyspepsia Integumentary (skin): Negative for rash or jaundice discoloration Genitourinary: Negative for urinary frequency, hematuria, or dysuria Neurological: Negative for weakness, seizure activity, headache, or dizziness Lymphatic/Hematologic: Negative for petechiae, bleeding or new adenopathy Musculoskeletal: Negative for new joint or back pain although he apparently had some bone pain secondary to Neupogen Allergic/Immunologic: Negative for unusual rash or pruritis. Vital Signs Vital Signs Past 12 Hours Date Time Temp Pulse Resp B/P (MAP) Pulse Ox O2 Delivery O2 Flow Rate FiO2 06/02/17 11:18 36.8 74 18 134/76 (95) 94 Room Air 06/02/17 09:00 Room Air 3/6/18 07:24 37.0 68 18 127/80 (96) 95 Room Air 06/02/17 03:30 37.1 72 18 126/79 (95) 96 Room Air Physical Exam Constitutional: vitals are stable. Eyes: Eyes are HARLEY EOMI without conjuctival erythema or icterus. ENT: External examination was negative for masses. Neck: Negative for masses or palpable thyromegaly Respiratory: Lung sounds were generally clear bilaterally Cardiovascular: Heart was RRR without significant murmur, gallops aoe rubs Gastrointestinal: No palpable hepatic or splenomegaly. The abdomen was soft with normal bowel sounds. Lymphatic system: there was no palpable peripheral lymphadenopathy Musculoskeletal System: The musculoskeletal system seemed concordant with age. Skin: The skin was negative for jaundice. Neurologic exam: The exam was negative for any focal findings. Deep tendon reflexes were equal and symmetrical. Psychiatric exam: Was essentially negative with normal mood and effect. Extremities:: Negative for edema erythema Laboratory Last 24 Hours Test 06/02/17 05:40 White Blood Count 5.59 K/uL Red Blood Count 3.42 M/uL Hemoglobin 9.6 g/dL Hematocrit 26.6 % Mean Corpuscular Volume 77.8 fL Mean Corpuscular Hemoglobin 28.1 pg Mean Corpuscular Hemoglobin Concent 36.1 g/dl Platelet Count 14 K/uL Mean Platelet Volume 10.0 fL RDW Standard Deviation 41.1 fL RDW Coefficient of Variation 14.3 % Neutrophils % (Manual) 60.0 % Lymphocytes % (Manual) 15.7 % Monocytes % (Manual) 2.6 % Metamyelocytes % 11.3 % Myelocytes % 10.4 % Neutrophils # (Manual) 3.35 K/uL Total Absolute Neutrophils 3.35 K/uL Lymphocytes # (Manual) 0.88 K/uL Total Absolute Lymphocytes 0.88 K/uL Monocytes # (Manual) 0.15 K/uL Metamyelocytes # 0.63 K/uL Myelocytes # 0.58 K/uL Toxic Granulation 1+ Dohle Bodies 1+ Sodium Level 140 mmol/L Potassium Level 3.4 mmol/L Chloride Level 105 mmol/L Carbon Dioxide Level 29 mmol/L Anion Gap 5.0 mmol/L Blood Urea Nitrogen 21 mg/dl Creatinine 1.76 mg/dl Est Creatinine Clear Calc Drug Dose 63.3 ml/min Estimated GFR () 51.1 Estimated GFR (Non- 44.1 BUN/Creatinine Ratio 12.2 Random Glucose 91 mg/dl Calcium Level 7.3 mg/dl Magnesium Level 1.2 mg/dl Assessment & Plan History of testicular carcinoma status post chemotherapy. His treatment was completed about 11 days ago and I would expect his blood counts recover fairly quickly. His white cell number overall is greater than 5000 today. I would like to see his platelet count began to release show signs of recovery. Hopefully that will be by tomorrow. I suspect he could be discharged within the next 24-48 hours. There is no evidence of bleeding and would hold off on further transfusions at this time.
[2017-06-02 15:00] VITALS: BP 132/82; PULSE 71; TEMP 36.8; O2SAT 96
--- NOTE | 2017-06-02 16:30 | Progress Note ---
Subjective Date of Service: Jun 02, 2017. Subjective Pt evaluation today including: conversation w/ patient, physical exam, lab review, review of inpatient medication list Pain: no pain PO Intake: adequate Voiding: no voiding problems patient feeling well, no complaints discussed that his platelet count was still low no longer neutropenic K low at 3.4 but Cr improving to 1.8 plan to d/c tomorrow, he agrees with this plan Review of Systems Constitutional: + weakness, + fatigue All Other Systems: Reviewed and Negative Medications Current Inpatient Medications Medications (Trade) Dose Ordered Sig/Rhoda Route Start Time Stop Time Status Last Admin Dose Admin Acetaminophen (Tylenol Tab) 650 mg Q4H PRN PO 05/30/17 13:30 06/29/17 13:29 06/01/17 08:10 650 MG Al Hydrox/Mg Hydrox/Simethicone (Maalox Max Susp) 15 ml Q4H PRN PO 05/30/17 13:30 06/29/17 13:29 Magnesium Hydroxide (Milk Of Magnesia Susp) 30 ml Q6H PRN PO 05/30/17 13:30 06/29/17 13:29 Polyethylene (Miralax Powder Packet) 17 gm DAILY PRN PO 05/30/17 13:30 06/29/17 13:29 Zolpidem Tartrate (Ambien Tab) 5 mg HSZ PRN PO 05/30/17 13:30 06/29/17 13:29 Venlafaxine HCl (effeXOR EXTENDED REL CAP) 75 mg HS PO 05/30/17 21:00 06/29/17 20:59 Magnesium Oxide (Mag-Ox Tab) 400 mg BID PO 05/30/17 20:00 06/02/17 19:59 06/02/17 08:44 400 MG Hydromorphone HCl (Dilaudid Inj) 1 mg Q4H PRN IV 05/30/17 23:45 06/13/17 23:44 06/01/17 06:22 1 MG Cyclobenzaprine HCl (Flexeril Tab) 5 mg TID PRN PO 05/31/17 00:00 06/30/17 00:00 Amoxicillin/ Clavulanate Potassium (Amoxicillin/ Clavulanate 600MG/ 42.9MG 5 Ml EMA) 600 mg BIDM PO 05/31/17 08:15 06/10/17 08:14 06/02/17 08:44 600 MG Dexamethasone Sodium Phosphate 4 mg/Syringe 1 ml @ 1 mls/min Q6H PRN IV 05/31/17 11:45 06/30/17 11:44 Ondansetron HCl 8 mg/Dextrose 54 ml @ 216 mls/hr Q6 PRN IV 05/31/17 12:00 06/30/17 11:59 Tramadol HCl (Ultram Tab) 50 mg Q4H PRN PO 06/01/17 18:30 07/01/17 18:29 06/01/17 20:18 50 MG Heparin Sodium (Porcine) (Heparin 100 Unit/ml 5ml Flush) 5 ml PRN PRN IV 06/02/17 12:30 07/02/17 12:29 Objective Vital Signs Date Time Temp Pulse Resp B/P (MAP) Pulse Ox O2 Delivery O2 Flow Rate FiO2 06/02/17 15:00 36.8 71 18 132/82 (99) 96 Room Air 06/02/17 11:18 36.8 74 18 134/76 (95) 94 Room Air 06/02/17 09:00 Room Air 06/02/17 07:24 37.0 68 18 127/80 (96) 95 Room Air 06/02/17 03:30 37.1 72 18 126/79 (95) 96 Room Air 06/02/17 00:00 Room Air 06/01/17 23:05 37.1 78 18 128/82 (97) 97 Room Air 06/01/17 20:58 37.2 79 18 147/72 (97) 99 Room Air 06/01/17 20:30 Room Air 06/01/17 16:41 37.0 80 22 126/81 (96) 93 Room Air Physical Exam General Appearance: WD/WN, no apparent distress Eyes: normal inspection, EOMI, sclerae normal ENT: normal ENT inspection, hearing grossly normal, pharynx normal Neck: supple, no adenopathy, no JVD, trachea midline Respiratory/Chest: chest non-tender, lungs clear, normal breath sounds, no respiratory distress, no accessory muscle use Cardiovascular: regular rate, rhythm, no edema, no gallop, no JVD, no murmur Abdomen: normal bowel sounds, non tender, soft, no organomegaly Extremities: normal range of motion, non-tender, normal inspection, no pedal edema, no calf tenderness Neurologic/Psychiatric: ring stamper II-XII nml as tested, no motor/sensory deficits, alert, normal mood/affect, oriented x 3 Skin: normal color, warm/dry, no rash Laboratory Results Last 24 Hours Test 06/02/17 05:40 White Blood Count 5.59 K/uL Red Blood Count 3.42 M/uL Hemoglobin 9.6 g/dL Hematocrit 26.6 % Mean Corpuscular Volume 77.8 fL Mean Corpuscular Hemoglobin 28.1 pg Mean Corpuscular Hemoglobin Concent 36.1 g/dl Platelet Count 14 K/uL Mean Platelet Volume 10.0 fL RDW Standard Deviation 41.1 fL RDW Coefficient of Variation 14.3 % Neutrophils % (Manual) 60.0 % Lymphocytes % (Manual) 15.7 % Monocytes % (Manual) 2.6 % Metamyelocytes % 11.3 % Myelocytes % 10.4 % Neutrophils # (Manual) 3.35 K/uL Total Absolute Neutrophils 3.35 K/uL Lymphocytes # (Manual) 0.88 K/uL Total Absolute Lymphocytes 0.88 K/uL Monocytes # (Manual) 0.15 K/uL Metamyelocytes # 0.63 K/uL Myelocytes # 0.58 K/uL Toxic Granulation 1+ Dohle Bodies 1+ Sodium Level 140 mmol/L Potassium Level 3.4 mmol/L Chloride Level 105 mmol/L Carbon Dioxide Level 29 mmol/L Anion Gap 5.0 mmol/L Blood Urea Nitrogen 21 mg/dl Creatinine 1.76 mg/dl Est Creatinine Clear Calc Drug Dose 63.3 ml/min Estimated GFR () 51.1 Estimated GFR (Non- 44.1 BUN/Creatinine Ratio 12.2 Random Glucose 91 mg/dl Calcium Level 7.3 mg/dl Magnesium Level 1.2 mg/dl Assessment and Plan A 52-year-old white male with testicular cancer who recently completed last round of chemotherapy Pancytopenia/Neutropenic with Recent Chemotherapy from Testicular Cancer: - no longer neutropenic as of today - Hb stable at 9.6 - platelets low at 14, no bruising, no bleeding - repeat CBC tomorrow 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: - Cr improved to 1.8, adequate urine output, will hold on further fluids as he is drinking adequate amounts L Facial Cellulitis and Poor Denitition: - Received Zosyn in [place] - question of possible bone marrow suppression - Continue Augmentin BID at this time, cellulitis improved, WBC now normal and no longer neutropenic will complete a 10-14 day course Hypomagnesemia: - still low at 1.2, will order 2gm IV replacement Hypokalemia: 3.4 today, treated with KCl 40mEq PO DVT: SCDS plan to d/c tomorrow Continued [facility] stay due to: multiple IV medications needed, home environment unsafe for pt Discharge planning: home
[2017-06-02 19:38] VITALS: BP 156/91; PULSE 74; TEMP 37.2; O2SAT 98
[2017-06-02] MEDS: VENLAFAXINE HCL XR 37.5 MG CAPXR PO SCH (20:39)
[2017-06-02] MEDS: MAGNESIUM SULFATE 1GM / D5W 1 GM in PREMIXED IN D5W 100 ML IV SCH ×2 (21:33→22:35)
[2017-06-02 23:26] VITALS: BP 127/78; PULSE 70; TEMP 37; O2SAT 93
[2017-06-03 04:37] VITALS: BP 141/86; PULSE 64; TEMP 36.5; O2SAT 96
[2017-06-03 06:18] LABS: HEMOGLOBIN 10.1 g/dL (14.0-18.0); MEAN CELL VOLUME 78.2 fL (80-100); MEAN CORPUSCULAR HEMOGLOBIN 28.2 pg (25-34); MEAN CORPUSCULAR HGB CONC 36.1 g/dl (32-36); MEAN PLATELET VOLUME 9.9 fL (7.4-10.4); PLATELET COUNT 17 K/uL (130-400); RED CELL DISTRIBUTION WIDTH CV 14.3 % (11.5-14.5); RED CELL DISTRIBUTION WIDTH SD 41.1 fL (36.4-46.3); WHITE BLOOD COUNT 7.18 K/uL (4.8-10.8)
[2017-06-03 06:32] LABS: CALCIUM 7.8 mg/dl (8.5-10.1); CREATININE 1.7 mg/dl (0.60-1.40); POTASSIUM 3.2 mmol/L (3.5-5.1)
[2017-06-03 07:46] VITALS: BP 146/89; PULSE 67; TEMP 36.4; O2SAT 99
[2017-06-03] MEDS ORDERED: MAGNESIUM SULFATE 1GM / D5W 1 GM in PREMIXED IN D5W 100 ML IV SCH (08:00)
[2017-06-03] MEDS ORDERED: POTASSIUM CHLR 20 MEQ / WTR 20 MEQ in PREMIXED WATER 100 ML IV ONE (08:30)
[2017-06-03] MEDS: AMOXICILLIN/CLAVULANATE POTAS 600 MG/5 ML UDP PO SCH (08:53)
[2017-06-03 11:38] VITALS: BP 142/83; PULSE 72; TEMP 36.9; O2SAT 95
--- NOTE | 2017-06-03 12:22 | Hematology/Oncology Prog Note ---
Hematology/Onc Progress Note Date of Service Jun 03, 2017. Diagnoses History of testicular carcinoma status post chemotherapy with the last cycle being given May 21. He is now admitted with pancytopenia and what was felt to be a facial cellulitis. Medications Medications Administered Medications (Trade) Dose Ordered Sig/Rhoda Route Start Time Stop Time Status Last Admin Dose Admin Acetaminophen (Tylenol Tab) 650 mg Q4H PRN PO 05/30/17 13:30 06/29/17 13:29 06/01/17 08:10 650 MG Ondansetron HCl (Zofran Inj) 4 mg Q6H PRN IV 05/30/17 13:30 05/31/17 11:38 DC 05/31/17 07:16 4 MG Magnesium Oxide (Mag-Ox Tab) 400 mg BID PO 05/30/17 20:00 06/02/17 19:59 DC 06/02/17 08:44 400 MG Magnesium Sulfate 1 gm/Prmx 100 ml @ 100 mls/hr NOW STAT IV 05/30/17 14:41 05/30/17 15:40 DC 05/30/17 15:20 100 MLS/HR Potassium Chloride (Klor-Con M10) 20 meq NOW STAT PO 05/30/17 14:42 05/30/17 14:43 DC 05/30/17 15:20 20 MEQ Magnesium Sulfate 1 gm/Prmx 100 ml @ 100 mls/hr TODAY@1800 IV 05/30/17 18:00 05/30/17 20:00 DC 05/30/17 18:14 100 MLS/HR Tramadol HCl (Ultram Tab) 50 mg BID PRN PO 05/30/17 23:45 06/01/17 18:30 DC 06/01/17 10:34 50 MG Hydromorphone HCl (Dilaudid Inj) 1 mg Q4H PRN IV 05/30/17 23:45 06/13/17 23:44 06/01/17 06:22 1 MG Sodium Chloride 1,000 ml @ 100 mls/hr Q10H IV 05/31/17 00:00 06/02/17 12:12 DC 06/02/17 11:07 100 MLS/HR Amoxicillin/ Clavulanate Potassium (Amoxicillin/ Clavulanate 600MG/ 42.9MG 5 Ml EMA) 600 mg BIDM PO 05/31/17 08:15 06/10/17 08:14 06/03/17 08:53 600 MG Magnesium Sulfate 1 gm/Prmx 100 ml @ 100 mls/hr Q1H IV 05/31/17 09:00 05/31/17 10:59 DC 05/31/17 10:00 100 MLS/HR Promethazine HCl 12.5 mg/Sodium Chloride 50.5 ml @ 202 mls/hr NOW STAT IV 05/31/17 08:52 05/31/17 09:06 DC 05/31/17 10:52 202 MLS/HR Magnesium Sulfate 1 gm/Prmx 100 ml @ 100 mls/hr NOW ONCE IV 06/01/17 10:30 06/01/17 11:29 DC 06/01/17 10:29 100 MLS/HR Tramadol HCl (Ultram Tab) 50 mg Q4H PRN PO 06/01/17 18:30 07/01/17 18:29 06/01/17 20:18 50 MG Heparin Sodium (Porcine) (Heparin 100 Unit/ml 5ml Flush) 5 ml PRN PRN IV 06/02/17 12:30 07/02/17 12:29 06/03/17 05:52 5 ML Magnesium Sulfate 1 gm/Prmx 100 ml @ 100 mls/hr Q1H IV 06/02/17 20:45 06/02/17 22:44 DC 06/02/17 22:35 100 MLS/HR Magnesium Sulfate 1 gm/Prmx 100 ml @ 100 mls/hr 0800 IV 06/03/17 08:00 06/03/17 08:59 DC 06/03/17 08:54 100 MLS/HR Potassium Chloride 20 meq/ Prmx 100 ml @ 50 mls/hr 0830 ONCE IV 06/03/17 08:30 06/03/17 10:29 DC 06/03/17 08:53 50 MLS/HR Subjective Continues to do well. Denies any fever. Denies any chest pain or diarrhea. Facial discomfort has resolved. Review of Systems: Constitutional: Negative for night sweats, or fever Eyes: Negative for event change of vision ENT: Negative for epistaxis, nasal discharge, sore throat, or deafness Cardiovascular: Negative for chest pain, palpitations, dizziness, diaphoresis Respiratory: Negative for new shortness of breath,hemoptysis, or purulent cough Gastrointestinal: Negative for diarrhea, hematemesis, melena, nausea, vomiting , or dyspepsia Integumentary (skin): Negative for rash or jaundice discoloration Neurological: Negative for weakness, seizure activity, headache, or dizziness Lymphatic/Hematologic: Negative for petechiae, bleeding or new adenopathy Musculoskeletal: Negative for new joint or back pain Allergic/Immunologic: Negative for unusual rash or pruritis. Vital Signs Vital Signs Past 12 Hours Date Time Temp Pulse Resp B/P (MAP) Pulse Ox O2 Delivery O2 Flow Rate FiO2 06/03/17 11:38 36.9 72 16 142/83 (102) 95 Room Air 06/03/17 08:45 Room Air 06/03/17 07:46 36.4 67 17 146/89 (108) 99 Room Air 06/03/17 07:46 Room Air 06/03/17 04:37 36.5 64 19 141/86 (104) 96 Room Air Physical Exam Constitutional: vitals are stable. Eyes: Eyes are HARLEY EOMI without conjuctival erythema or icterus. ENT: External examination was negative for masses. Neck: Negative for masses or palpable thyromegaly Respiratory: Lung sounds were generally clear bilaterally Cardiovascular: Heart was RRR without significant murmur, gallops aoe rubs Gastrointestinal: No palpable hepatic or splenomegaly. The abdomen was soft with normal bowel sounds. Lymphatic system: there was no palpable peripheral lymphadenopathy Musculoskeletal System: The musculoskeletal system seemed concordant with age. Skin: The skin was negative for jaundice. Neurologic exam: The exam was negative for any focal findings. Deep tendon reflexes were equal and symmetrical. Psychiatric exam: Was essentially negative with normal mood and effect. Extremities: negative for edema Laboratory Last 24 Hours Test 06/03/17 05:24 White Blood Count 7.18 K/uL Red Blood Count 3.58 M/uL Hemoglobin 10.1 g/dL Hematocrit 28.0 % Mean Corpuscular Volume 78.2 fL Mean Corpuscular Hemoglobin 28.2 pg Mean Corpuscular Hemoglobin Concent 36.1 g/dl Platelet Count 17 K/uL Mean Platelet Volume 9.9 fL RDW Standard Deviation 41.1 fL RDW Coefficient of Variation 14.3 % Neutrophils % (Manual) 59.6 % Lymphocytes % (Manual) 23.7 % Monocytes % (Manual) 4.4 % Metamyelocytes % 7.0 % Myelocytes % 3.5 % Promyelocytes % 0.9 % Blast Cells % 0.9 % Neutrophils # (Manual) 4.28 K/uL Total Absolute Neutrophils 4.28 K/uL Lymphocytes # (Manual) 1.70 K/uL Total Absolute Lymphocytes 1.70 K/uL Monocytes # (Manual) 0.32 K/uL Metamyelocytes # 0.50 K/uL Myelocytes # 0.25 K/uL Promyelocytes # 0.06 K/uL Blast Cells # 0.06 K/uL Blood Smear Review Toxic Granulation 2+ Dohle Bodies 2+ Platelet Estimate SIGNIFIC DECREASED Sodium Level 139 mmol/L Potassium Level 3.2 mmol/L Chloride Level 104 mmol/L Carbon Dioxide Level 27 mmol/L Anion Gap 8.0 mmol/L Blood Urea Nitrogen 19 mg/dl Creatinine 1.70 mg/dl Est Creatinine Clear Calc Drug Dose 65.8 ml/min Estimated GFR () 53.3 Estimated GFR (Non- 46.0 BUN/Creatinine Ratio 11.2 Random Glucose 89 mg/dl Calcium Level 7.8 mg/dl Magnesium Level 1.6 mg/dl Assessment & Plan History of testicular carcinoma status post chemotherapy. The count today is 17 ,000 is been no overt bleeding. His blood counts are recovering and I suspect he can be discharged from our standpoint. He does have a follow-up in our clinic.
[2017-06-03] MEDS ORDERED: AMOX600S PO ×2 (12:25→14:46)
[2017-06-03] MEDS ORDERED: EFFSR75 PO (12:26)
--- NOTE | 2017-06-03 12:31 | Discharge Instructions ---
Discharge Instructions Date of Service Jun 03, 2017. Admission Reason for Admission: Neutropenic After Chemo,Facial Cellulitis Discharge Discharge Diagnosis / Problem: Neutropenia Discharge Goals Goal(s): Decrease discomfort, Improve function, Increase independence Activity Recommendations Activity Limitations: resume your previous activity . Instructions / Follow-Up Instructions / Follow-Up Pancytopenia/Neutropenic with Recent Chemotherapy from Testicular Cancer: - You are no longer neutropenic but would still recommend to avoid being around sick individuals or wear a mask when in a crowded area. - Platelets are still low so avoid contact activities and avoid falls/trauma. Watch for bleeding and bruising. - Recommend to keep your appointments with your oncologist and get the follow- up lab work - Recommend a multivitamin to help keep your electrolytes and minerals in balance. L Facial Cellulitis/Swelling: - Continue Augmentin twice a day for 5 more days The following appointment has been arranged for you, Please follow up with Dr. Mishra on Monday, June 12, 2017 at 3:50pm. *If you need to reschedule this appointment please call the office at [phone]. Current Hospital Diet Patient's current hospital diet: Regular Diet Discharge Diet Recommended Diet: Regular Diet Pending Studies Studies pending at discharge: no Medical Emergencies . Who to Call and When: Medical Emergencies: If at any time you feel your situation is an emergency, please call 911 immediately. . Non-Emergent Contact Non-Emergency issues call your: Primary Care Provider Call Non-Emergent contact if: you have a fever, your pain is concerning you, you have any medication questions . . "Provider Documentation" section prepared by Addis Wong. .
[2017-06-03 12:37] VITALS: BP 142/83; PULSE 72; TEMP 36.9; O2SAT 95
--- NOTE | 2017-06-03 14:11 | Discharge Summary ---
Discharge Summary Date of Service Jun 03, 2017. Discharge Summary Admission Date: May 30, 2017 at 13:01 Discharge Date: Jun 03, 2017 Discharge Disposition: Home Principal Diagnosis: Pancytopenia; Facial Cellulitis Problems/Secondary Diagnoses: 1. Testicular Cancer 2. Depression/Anxiety Immunizations: Have You Had Influenza Vaccine: No History of Pneumococcal: No Procedures: LUMBAR SPINE 3 VIEWS FINDINGS: AP, lateral, and coned-down views of the lumbar spine are correlated with abdominal CT dated 02/13/2017. The skeletal structures are well mineralized. There is no radiographic evidence of fracture or malalignment. Vertebral body height and alignment are maintained throughout the lumbar spine. The transverse and spinous processes appear intact. Tiny anterior osteophytes are seen throughout. Mild facet arthropathy is seen in the lower lumbar region. The disc spaces are preserved. Minimal endplate sclerosis is seen at T12-L1 and L1-L2. The visualized bony pelvis appears intact. Cholecystectomy clips are noted. There is no bowel obstruction. Mild colonic fecal retention is observed. IMPRESSION: No acute bony abnormality is identified involving the lumbar spine. Consultations: Oncology Medication Reconciliation New Medications: Amoxicillin & Pot Clavulanate (Amoxicillin/Clavulanate P) 1 Deanna Deanna 600 MG PO BIDM for 5 Days, #10 TABS Continued Medications: Venlafaxine Hcl (Effexor Extended Rel) 75 Mg Capcr 75 MG PO DAILY, CAP Discharge Exam Review of Systems: Constitutional: No fever, No chills ENT: No nasal symptoms, No sore throat, No dental problems, No trouble swallowing Respiratory: No cough, No shortness of breath Cardiovascular: No chest pain Abdomen: No pain, No nausea, No vomiting, No diarrhea, No constipation Musculoskeletal: + joint pain (lower back pain - improving) Genitourinary - Male: No dysuria Hematologic / Lymphatic: No abnormal bleeding/bruising Physical Exam: General Appearance: WD/WN, no apparent distress Eyes: sclerae normal ENT: hearing grossly normal Neck: supple, no JVD, trachea midline Respiratory/Chest: lungs clear, normal breath sounds, no respiratory distress, no accessory muscle use Cardiovascular: regular rate, rhythm, no gallop, no murmur Abdomen / GI: normal bowel sounds, non tender, soft Extremities: no pedal edema Neurologic/Psychiatric: alert, oriented x 3 Skin: normal color, warm/dry Hospital Course ADMISSION: The patient is a 52-year-old white male with a significant past medical history of acute kidney failure, testes cancer, following up with Dr. Weber with recent chemotherapy. He is transferred from [facility] because of left facial cellulitis and pancytopenia. The patient is a 52-year-old white male who has testicular cancer, had a fourth cycle of chemotherapy with Dr. Weber. He was recently discharged from this hospital because of acute kidney failure 1 week ago, and 3 days ago he developed left facial swelling, pain and was admitted to [facility]. In the hospitalization, the patient was found to have left facial cellulitis for that he was getting Zosyn. Local swelling pain has been much improved; however, he developed anemic, hemoglobin was low at 6.7, he got total of 3 units of blood transfusion, which improved to 9 grams today. He was found to have neutropenic. He got 1 dose of Neupogen 3 days ago; however, white count is still 0.7 today. His platelet levels was dropped to 31. Because of the worsening neutropenic and patient's underlying medical conditions of testis cancer status post chemotherapy, the hospitalist in [place] requesting for the transferring. I agreed. Per report, the patient was having recent acute kidney failure, creatinine level is around 1.9-2.0 which has been stable, renal ultrasound was done in [facility] was not remarkable. The patient has no fever and chills. Blood culture in [place] has been negative so far. When I interviewed with the patient, he was awake, alert and orientated, up and walk. No fever and chill. Reports to me left facial swelling and tooth ache was significantly improved. Currently, the pain is a 10/10. He was having mild nauseation 2 days ago, which was resolved. Denied heartburn. Denied vomiting. Denied abdominal pain, diarrhea, or constipation. Denied cough, sputum, shortness of breath. Denied chest pain, palpitation, lower extremity swelling. Denied dysuria, urgency, or frequencies. Denied facial droop, slurry speeches or local weakness. HOSPITAL COURSE: Mr. Omalley was a direct from [place] for Pancytopenia and Facial Cellulitis. He recently completed chemotherapy for testicular cancer. Appears he hit phil and is improving. He is no longer neutropenic and likely had some marrow suppression for Zosyn. He did have platelet and PRBC transfusion with improvements. Platelets remain low but no signs of bleeding or bruising. Oncology wants to have F/U blood work and testing now that his treatment is complete. For the facial cellulitis/edema he will complete a course of Augmentin x 5 more days. Recommend F/U with dentist as he reports long -standing dental issues. Total Time Spent: Greater than 30 minutes This includes examination of the patient, discharge planning, medication reconciliation, and communication with other providers. Discharge Instructions Please refer to the electronic Patient Visit Report (Discharge Instructions) for additional information. Additional Copies To Sly Mishra D.O.
== END 2017-06-03 16:14 | disposition home or self-care (01) | DRG 602 ==
LOC: C.4E 13:01
PROVIDERS: ADMIT Hospitalist; ATTEND Internal Medicine
DX: L03.211 Cellulitis of face (principal); D61.810 Antineoplastic chemotherapy induced pancytopenia; N17.9 Acute kidney failure, unspecified; D70.1 Agranulocytosis secondary to cancer chemotherapy; D69.59 Other secondary thrombocytopenia; T45.1X5A Adverse effect of antineoplastic and immunosuppressive drugs, initial encounter; K08.89 Other specified disorders of teeth and supporting structures; E83.42 Hypomagnesemia; E87.6 Hypokalemia; R11.2 Nausea with vomiting, unspecified; M54.5 Low back pain; T50.995A Adverse effect of other drugs, medicaments and biological substances, initial encounter; N18.2 Chronic kidney disease, stage 2 (mild); F41.9 Anxiety disorder, unspecified; Z85.47 Personal history of malignant neoplasm of testis; Z92.21 Personal history of antineoplastic chemotherapy; Z90.79 Acquired absence of other genital organ(s); Z90.49 Acquired absence of other specified parts of digestive tract; Z98.890 Other specified postprocedural states; Z79.82 Long term (current) use of aspirin; Z79.899 Other long term (current) drug therapy; Z88.6 Allergy status to analgesic agent; Z91.030 Bee allergy status; Z80.7 Family history of other malignant neoplasms of lymphoid, hematopoietic and related tissues

== ENCOUNTER → 2017-06-24 | Outpatient (CLI) | payer OTHER ==
[~2017-06-24] MED LIST changes: +AMOX600S PO; -ASPI81TA28 PO; +EFFSR75 PO; +OPTIRAY 320 IV PRN; -effexor
--- NOTE | 2017-06-24 17:13 | DIAGNOSTIC IMAGING REPORT ---
CT (CHEST) THORAX WITH CT DOSE: 1519.93 mGycm HISTORY: Pulmonary nodules TESTICULAR CA TECHNIQUE: Multiaxial CT images of the chest were performed following the intravenous administration of contrast. A dose lowering technique was utilized adhering to the principles of ALARA. COMPARISON: 02/13/2017 FINDINGS: The lungs are clear. The mediastinal vascular structures are within normal limits. No mediastinal or hilar lymphadenopathy. No pleural effusion or pneumothorax. Limited views of the upper abdomen demonstrate a normal liver and spleen. Unchanging minimal nodularity of the mid right as well as mid left lungs at 3 and 2 mm respectively. These are unchanged. IMPRESSION: Stable micronodularity of the chest. No change from the prior study. Follow-up per Fleischner criteria or as clinically indicated. The above report was generated using voice recognition software. It may contain grammatical, syntax or spelling errors. Electronically signed by: Homero Villalba M.D. 06/24/2017 5:12 PM Dictated Date/Time: 06/24/2017 5:08 PM
--- NOTE | 2017-06-24 18:07 | DIAGNOSTIC IMAGING REPORT ---
ABD/PELVIS IV AND ORAL CONT CT DOSE: HISTORY: Testicular carcinoma TESTICULAR CA TECHNIQUE: Multiaxial CT images of the abdomen and pelvis were performed following the use of intravenous and oral contrast. A dose lowering technique was utilized adhering to the principles of ALARA. COMPARISON STUDY: 02/13/2017 FINDINGS: Lung bases are clear. Liver spleen and pancreas are unremarkable. There has been a prior cholecystectomy. The potential retrocrural and/or gastroesophageal node produces described is not present currently. There is a small hiatal hernia. 2 points 2 cm node medially superior to the bifurcation the abdominal aorta is unchanged at 2.2 cm. There is no evidence for new interval or progressive periaortic or retroperitoneal adenopathy. Bladder currently is midline with no significant wall thickening. Postoperative changes of the right inguinal region are improved. IMPRESSION: 1. Improved exam. 2. The 2.2 cm para-aortic node previously described is unchanged. 3. Improving postoperative change right inguinal region. 4. Normal bladder appearance currently. 5. No additional significant adenopathy is appreciated with the gastroesophageal junction node previously described resolved. The above report was generated using voice recognition software. It may contain grammatical, syntax or spelling errors. Electronically signed by: Homero Villalba M.D. 06/24/2017 6:06 PM Dictated Date/Time: 06/24/2017 5:59 PM
== END | disposition home or self-care (01) ==
LOC: C.CTS 13:40
PROVIDERS: ATTEND Internal Medicine Hematology & Oncology
DX: C62.11 Malignant neoplasm of descended right testis (principal); R91.8 Other nonspecific abnormal finding of lung field